=== PATIENT | male | born 1935 | race Caucasian/White ===

== ENCOUNTER 2016-11-06 11:09 | Inpatient (IN) | payer MEDICARE, OTHER ==
[2016-11-06] MEDS ORDERED: Sodium Chloride 0.9% 1,000 ML IV SCH ×3 (11:15→13:30)
[2016-11-06] MEDS ORDERED: Acetaminophen 325 MG Tab PO ONE (11:52)
--- NOTE | 2016-11-06 11:58 | EDM.PDOC ---
ED HPI GENERAL MEDICAL PROBLEM - General Chief Complaint: General Stated Complaint: [facility] Time Seen by Provider: 11/06/16 11:55 Source of Information: Reports: Patient, Family History Limitations: Reports: No Limitations - History of Present Illness INITIAL COMMENTS - FREE TEXT/NARRATIVE: pt has become progessively weaker in the past 2-3 days. He became incontinent of urine late yesterday and in the nite. He has not had a cough or has not been sob. Onset: Gradual, Other ( Over the past 3 days. ) Duration: Day(s):, Getting Worse, Other (pt is running a high temp. ) Location: Reports: Abdomen Associated Symptoms: Reports: Diaphoresis, Fever/Chills, Malaise - Related Data Allergies Allergy/AdvReac Type Severity Reaction Status Date / Time No Known Allergies Allergy Verified 11/06/16 11:23 Home Meds: Home Meds Allopurinol [Zyloprim] 300 mg PO DAILY 11/06/16 [History] Aspirin [Halfprin] 81 mg PO DAILY 11/06/16 [History] Diclofenac Sodium [Voltaren] 100 gm TP QID 11/06/16 [History] Furosemide 80 mg PO DAILY 11/06/16 [History] Losartan Potassium 50 mg PO DAILY 11/06/16 [History] Magnesium Oxide 400 mg PO DAILY 11/06/16 [History] Saccharomyces Boulardii [Florastor] 250 mg PO BID 11/06/16 [History] Sertraline [Zoloft] 100 mg PO DAILY 11/06/16 [History] Simvastatin [Zocor] 80 mg PO BEDTIME 11/06/16 [History] Vitamin E 400 units PO DAILY 11/06/16 [History] amLODIPine [Norvasc] 10 mg PO DAILY 11/06/16 [History] busPIRone [Buspar] 5 mg PO BEDTIME 11/06/16 [History] Past Medical History HEENT History: Reports: Cataract, Macular Degeneration Cardiovascular History: Reports: Heart Failure, High Cholesterol, Hypertension, [place] Genitourinary History: Reports: BPH, Urinary Incontinence Musculoskeletal History: Reports: Other (See Below) Other Musculoskeletal History: swollen lower legs Neurological History: Reports: Other (See Below) Other Neuro History: confusion which has increased - Past Surgical History Cardiovascular Surgical History: Reports: Vascular Surgery Male Surgical History: Reports: Prostatectomy Social & Family History - Tobacco Use Smoking Status *Q: Never Smoker - Alcohol Use Days Per Week of Alcohol Use: 7 Number of Drinks Per Day: 4 Total Drinks Per Week: 28 Date of Last Drink: 11/03/16 - Recreational Drug Use Recreational Drug Use: No ED ROS GENERAL - Review of Systems Review Of Systems: See Below Constitutional: Reports: Fever, Chills, Malaise HEENT: Reports: No Symptoms Respiratory: Reports: No Symptoms Cardiovascular: Reports: No Symptoms Endocrine: Reports: No Symptoms GI/Abdominal: Reports: No Symptoms : Reports: Incontinence, Other ( smelly urine. ) Musculoskeletal: Reports: No Symptoms Skin: Reports: No Symptoms Neurological: Reports: Other ( somewhat obtunded. ) Psychiatric: Reports: Depression ED EXAM, GENERAL - Physical Exam Exam: See Below Free Text/Narrative:: pt arrived with a twemp of 102 and being somewhat obtunded. He was so weak he could not get to the Br. r Exam Limited By: No Limitations General Appearance: Alert, Obtunded Ears: Normal TMs Nose: Normal Inspection Throat/Mouth: Normal Inspection Head: Atraumatic Respiratory/Chest: No Respiratory Distress Cardiovascular: Regular Rate, Rhythm, Tachycardia GI/Abdominal: Soft, Non-Tender (Male) Exam: Deferred, Other ( bladder scan showed a rewsidual of 50cc. ) Rectal (Males) Exam: Deferred Back Exam: Normal Inspection Extremities: Other ( rt leg is swollen. It is qute firm and this is different. ) Neurological: Alert, Oriented, Other ( sleepy. ) Psychiatric: Depressed Mood Course - Vital Signs Last Recorded V/S: Last Vital Signs Temp 38.8 C H 11/06/16 11:59 Pulse 107 H 11/06/16 11:22 Resp 20 11/06/16 11:22 BP 135/61 11/06/16 11:22 Pulse Ox 93 L 11/06/16 11:22 - Orders/Labs/Meds Orders: Active Orders 24 hr Category Date Time Status VL Duplex Lwr Ext Veins Ltd Rt [US] Stat Exams 11/06/16 11:54 Taken CULTURE BLOOD [BC] Urgent Lab 11/06/16 11:50 Received CULTURE BLOOD [BC] Urgent Lab 11/06/16 12:00 Received CULTURE URINE [RM] Stat Lab 11/06/16 12:08 Received Sodium Chloride 0.9% [Normal Saline] 1,000 ml Med 11/06/16 13:00 Active IV ASDIRECTED Sodium Chloride 0.9% [Normal Saline] 1,000 ml Med 11/06/16 13:15 Active IV ASDIRECTED cefTRIAXone [Rocephin] 1 gm Med 11/06/16 13:30 Active Sodium Chloride 0.9% [Normal Saline] 50 ml IV Q24H Blood Culture x2 Reflex Set [OM.PC] Urgent Oth 11/06/16 11:46 Ordered Medication Orders Sodium Chloride (Normal Saline) 1,000 mls @ 1,000 mls/hr IV ASDIRECTED TED Stop: 11/06/16 15:01 Ceftriaxone Sodium 1 gm/ (Sodium Chloride) 50 mls @ 100 mls/hr IV Q24H TED Sodium Chloride (Normal Saline) 1,000 mls @ 500 mls/hr IV ASDIRECTED TED Labs: Laboratory Tests 11/06/16 11/06/16 11/06/16 Range/Units 11:20 11:20 11:44 WBC 16.5 H (4.5-11.0) K/uL RBC 3.39 L (4.30-5.90) M/uL Hgb 11.2 L (12.0-15.0) g/dL Hct 34.0 L (40.0-54.0) % MCV 100 H (80-98) fL MCH 33 H (27-31) pg MCHC 33 (32-36) % Plt Count 127 L (150-400) K/uL Neut % (Auto) 90 H (36-66) % Lymph % (Auto) 3 L (24-44) % [place] % (Auto) 7 H (2-6) % Eos % (Auto) 0 L (2-4) % Baso % (Auto) 0 (0-1) % Sodium 130 L (140-148) mmol/L Potassium 4.1 (3.6-5.2) mmol/L Chloride 94 L (100-108) mmol/L Carbon Dioxide 28 (21-32) mmol/L Anion Gap 12.1 (5.0-14.0) mmol/L BUN 64 H (7-18) mg/dL Creatinine 2.1 H (0.8-1.3) mg/dL Est Cr Clr Drug Dosing 32.97 mL/min Estimated GFR (MDRD) 30 L (>60) Glucose 189 H (74-106) mg/dL Lactic Acid (0.4-2.0) mmol/L Calcium 9.4 (8.5-10.1) mg/dL Total Bilirubin 1.1 H (0.2-1.0) mg/dL AST 45 H (15-37) U/L ALT 32 (12-78) U/L Alkaline Phosphatase 244 H (46-116) U/L Total Protein 7.6 (6.4-8.2) g/dL Albumin 3.3 L (3.4-5.0) g/dL Globulin 4.3 H (2.3-3.5) g/dL Albumin/Globulin Ratio 0.8 L (1.2-2.2) Urine Color Yellow Urine Appearance Cloudy Urine pH 5.0 (4.5-8.0) Ur Specific [place] 1.010 (1.008-1.030) Urine Protein 100 H (NEGATIVE) mg/dL Urine Glucose (UA) Normal (NEGATIVE) mg/dL Urine Ketones Negative (NEGATIVE) mg/dL Urine Occult Blood Negative (NEGATIVE) Urine Nitrite Negative (NEGAITVE) Urine Bilirubin Negative (NEGATIVE) Urine Urobilinogen Normal (NORMAL) mg/dL Ur Leukocyte Esterase Small (NEGATIVE) Urine RBC Not seen (0-5) Urine WBC 5-10 H (0-5) Ur Epithelial Cells Few Amorphous Sediment Rare Urine Bacteria Many Urine Mucus Not seen 11/06/16 Range/Units 11:45 WBC (4.5-11.0) K/uL RBC (4.30-5.90) M/uL Hgb (12.0-15.0) g/dL Hct (40.0-54.0) % MCV (80-98) fL MCH (27-31) pg MCHC (32-36) % Plt Count (150-400) K/uL Neut % (Auto) (36-66) % Lymph % (Auto) (24-44) % [place] % (Auto) (2-6) % Eos % (Auto) (2-4) % Baso % (Auto) (0-1) % Sodium (140-148) mmol/L Potassium (3.6-5.2) mmol/L Chloride (100-108) mmol/L Carbon Dioxide (21-32) mmol/L Anion Gap (5.0-14.0) mmol/L BUN (7-18) mg/dL Creatinine (0.8-1.3) mg/dL Est Cr Clr Drug Dosing mL/min Estimated GFR (MDRD) (>60) Glucose (74-106) mg/dL Lactic Acid 2.5 H (0.4-2.0) mmol/L Calcium (8.5-10.1) mg/dL Total Bilirubin (0.2-1.0) mg/dL AST (15-37) U/L ALT (12-78) U/L Alkaline Phosphatase (46-116) U/L Total Protein (6.4-8.2) g/dL Albumin (3.4-5.0) g/dL Globulin (2.3-3.5) g/dL Albumin/Globulin Ratio (1.2-2.2) Urine Color Urine Appearance Urine pH (4.5-8.0) Ur Specific [place] (1.008-1.030) Urine Protein (NEGATIVE) mg/dL Urine Glucose (UA) (NEGATIVE) mg/dL Urine Ketones (NEGATIVE) mg/dL Urine Occult Blood (NEGATIVE) Urine Nitrite (NEGAITVE) Urine Bilirubin (NEGATIVE) Urine Urobilinogen (NORMAL) mg/dL Ur Leukocyte Esterase (NEGATIVE) Urine RBC (0-5) Urine WBC (0-5) Ur Epithelial Cells Amorphous Sediment Urine Bacteria Urine Mucus Meds: Medications Generic Name Dose Route Start Last Admin Trade Name Freq PRN Reason Stop Dose Admin Sodium Chloride 1,000 mls @ 1,000 mls/hr 11/06/16 13:00 Normal Saline IV 11/06/16 15:01 ASDIRECTED TED Ceftriaxone Sodium 1 gm/ 50 mls @ 100 mls/hr 11/06/16 13:30 Sodium Chloride IV Q24H TED Sodium Chloride 1,000 mls @ 500 mls/hr 11/06/16 13:15 Normal Saline IV ASDIRECTED TED Discontinued Medications Generic Name Dose Route Start Last Admin Trade Name Freq PRN Reason Stop Dose Admin Acetaminophen 650 mg 11/06/16 11:52 11/06/16 11:59 Tylenol PO 11/06/16 11:53 650 mg NOW ONE Administration Sodium Chloride 1,000 mls @ 500 mls/hr 11/06/16 11:15 11/06/16 11:32 Normal Saline IV 500 mls/hr ASDIRECTED TED Administration - Re-Assessments/Exams Free Text/Narrative Re-Assessment/Exam: 11/06/16 13:21 Us on the rt leg was neg for clot. His urine looks infected. He was given tylenol for his fever. His wbc is elevated. Departure - Departure Time of Disposition: 13:22 Disposition: Admitted As Inpatient 66 Condition: Fair Clinical Impression: Sepsis, UTI (urinary tract infection) - Discharge Information Forms: ED Department Discharge Care Plan Goals: admit to Dr zuñiga - My Orders Last 24 Hours: My Active Orders 11/06/16 11:46 Blood Culture x2 Reflex Set [OM.PC] Urgent 11/06/16 11:50 CULTURE BLOOD [BC] Urgent 11/06/16 11:54 VL Duplex Lwr Ext Veins Ltd Rt [US] Stat 11/06/16 12:00 CULTURE BLOOD [BC] Urgent 11/06/16 12:08 CULTURE URINE [RM] Stat 11/06/16 13:15 Sodium Chloride 0.9% [Normal Saline] 1,000 ml IV ASDIRECTED - Assessment/Plan Last 24 Hours: My Active Orders 11/06/16 11:46 Blood Culture x2 Reflex Set [OM.PC] Urgent 11/06/16 11:50 CULTURE BLOOD [BC] Urgent 11/06/16 11:54 VL Duplex Lwr Ext Veins Ltd Rt [US] Stat 11/06/16 12:00 CULTURE BLOOD [BC] Urgent 11/06/16 12:08 CULTURE URINE [RM] Stat 11/06/16 13:15 Sodium Chloride 0.9% [Normal Saline] 1,000 ml IV ASDIRECTED
--- NOTE | 2016-11-06 12:36 | CR ---
Chest 1V Frontal HISTORY: Shortness of breath and fever. COMPARISON: None FINDINGS: Median sternotomy. Moderate cardiomegaly. No acute congestive change. No dense infiltrate. Calcified granuloma right upper lobe. Impression: Cardiomegaly. No acute infiltrates.
[2016-11-06] MEDS: cefTRIAXone 1 GM in Sodium Chloride 0.9% 50 ML IV SCH ×2 (13:21→13:32)
[2016-11-06] MEDS: Sodium Chloride 0.9% 1,000 ML IV SCH ×3 (13:23→21:25)
--- NOTE | 2016-11-06 13:45 | US ---
VL Duplex Lwr Ext Veins Ltd Rt HISTORY: Pain, swelling. FINDINGS: The deep veins of the right lower extremity demonstrate normal augmentation and compressib ility. No evidence for deep venous thrombosis. IMPRESSION: Normal lower extremity venous Doppler study.
[2016-11-06] MEDS ORDERED: Polyethylene Glycol 3350 Powder 17 GM Packet PO PRN (15:30)
[2016-11-06] MEDS ORDERED: Magnesium Hydroxide 400 MG/5 ML Susp 30 ML Cup PO PRN (15:30)
[2016-11-06] MEDS ORDERED: Ondansetron 4 MG/2 ML SDV IV PRN (15:30)
[2016-11-06] MEDS ORDERED: Sodium Chloride 0.9% 10 ML Syringe FLUSH PRN (15:30)
[2016-11-06] MEDS ORDERED: Sodium Chloride 0.9% 500 ML IV ONE (15:30)
[2016-11-06] MEDS ORDERED: oxyCODONE 5 MG Tab PO PRN (15:30)
[2016-11-06] MEDS ORDERED: Sodium Chloride 0.9% 1,000 ML IV ONE (17:11)
[2016-11-06] MEDS: Diclofenac Sodium 1% Gel 100 GM Tube TOP SCH ×2 (17:25→21:06)
[2016-11-06] MEDS: Enoxaparin 40 MG/0.4 ML Syringe SUBCUT SCH (17:25)
[2016-11-06] MEDS: Dimethicone 20%/Zinc Oxide 25% 56 GM Spray Bottle TOP PRN (17:34)
--- NOTE | 2016-11-06 17:35 | PCM.HP ---
H&P History of Present Illness - General Date of Service: 11/06/16 Admit Problem/Dx: Admission Diagnosis/Problem Admission Diagnosis/Problem Cystitis Source of Information: Patient, Family, Old Records, Provider, RN Notes Reviewed History Limitations: Reports: No Limitations - History of Present Illness Initial Comments - Free Text/Narative: Mr. Castro is an 81-year-old gentleman who is admitted through the emergency department for further evaluation and management of urinary tract infection with sepsis. He and his live in the [facility] but her spending sometime this summer [place] their cabin. Over the past few days has become progressively more weak to the point that he was unable to get out of his chair. His morning had persistent weakness and also developed shaking chills. On evaluation in the emergency department there is evidence of urinary tract infection and associated sepsis with hypotension and tachycardia. - Related Data Allergies/Adverse Reactions: Allergies Allergy/AdvReac Type Severity Reaction Status Date / Time No Known Allergies Allergy Verified 11/06/16 11:23 Home Medications: Home Meds Allopurinol [Zyloprim] 300 mg PO DAILY 11/06/16 [History] Aspirin [Halfprin] 81 mg PO DAILY 11/06/16 [History] Diclofenac Sodium [Voltaren] 100 gm TP QID 11/06/16 [History] Furosemide 80 mg PO DAILY 11/06/16 [History] Losartan Potassium 50 mg PO DAILY 11/06/16 [History] Magnesium Oxide 400 mg PO DAILY 11/06/16 [History] Saccharomyces Boulardii [Florastor] 250 mg PO BID 11/06/16 [History] Sertraline [Zoloft] 100 mg PO DAILY 11/06/16 [History] Simvastatin [Zocor] 80 mg PO BEDTIME 11/06/16 [History] Vitamin E 400 units PO DAILY 11/06/16 [History] amLODIPine [Norvasc] 10 mg PO DAILY 11/06/16 [History] busPIRone [Buspar] 5 mg PO BEDTIME 11/06/16 [History] Past Medical History HEENT History: Reports: Cataract, Hard of Hearing, Macular Degeneration Cardiovascular History: Reports: Heart Failure, High Cholesterol, Hypertension, [place] Other Respiratory History: pt going to have sleep study has it scheduled Genitourinary History: Reports: BPH, Urinary Incontinence Musculoskeletal History: Reports: Other (See Below) Other Musculoskeletal History: swollen lower legs Neurological History: Reports: Other (See Below) Other Neuro History: confusion which has increased Oncologic (Cancer) History: Reports: Prostate Other Oncologic History: had radiation seeds 16 years ago - Infectious Disease History Infectious Disease History: Reports: Chicken Pox - Past Surgical History Cardiovascular Surgical History: Reports: Vascular Surgery Male Surgical History: Reports: Prostatectomy Social & Family History - Family History Family Medical History: Noncontributory - Tobacco Use Smoking Status *Q: Never Smoker Second Hand Smoke Exposure: No - Caffeine Use Caffeine Use: Reports: Coffee - Alcohol Use Days Per Week of Alcohol Use: 7 Number of Drinks Per Day: 4 Total Drinks Per Week: 28 Date of Last Drink: 11/04/16 - Recreational Drug Use Recreational Drug Use: No H&P Review of Systems - Review of Systems: Review Of Systems: See Below General: Reports: Fever, Chills, Weakness HEENT: Reports: No Symptoms Pulmonary: Reports: No Symptoms Cardiovascular: Reports: No Symptoms Gastrointestinal: Reports: No Symptoms Genitourinary: Reports: Frequency, Incontinence Musculoskeletal: Reports: No Symptoms Skin: Reports: No Symptoms Psychiatric: Reports: No Symptoms Neurological: Reports: No Symptoms Hematologic/Lymphatic: Reports: No Symptoms Immunologic: Reports: No Symptoms Exam - Exam Exam: See Below - Vital Signs Vital Signs: Last Vital Signs Temp 99.0 F 11/06/16 16:00 Pulse 69 11/06/16 17:06 Resp 18 11/06/16 17:06 BP 79/54 L 11/06/16 17:06 Pulse Ox 96 11/06/16 17:06 Weight: 330 lb 8 oz - Exam Quality Assessment: DVT Prophylaxis General: Alert, Cooperative, Mild Distress HEENT: Conjunctiva Clear, EOMI, Hearing Intact, Mucosa Moist & [place], Normal Nasal Septum, Posterior Pharynx Clear, Pupils Equal, Pupils Reactive Neck: Supple, Trachea Midline, +2 Carotid Pulse wo Bruit Lungs: Clear to Auscultation, Normal Respiratory Effort Cardiovascular: Regular Rhythm, Normal S1, Normal S2, Tachycardia, Systolic Murmur. No: Irregular Rhythm, Bradycardia, Diastolic Murmur Abdomen: Normal Bowel Sounds, Soft Back Exam: Normal Inspection, Full Range of Motion, NT Extremities: Edema Skin: Warm, Dry, Intact Neurological: Cranial Nerves Intact, Strength Equal Bilateral, Normal Speech, Normal Tone, Sensation Intact. No: Focal Deficit Neuro Extensive - Mental Status: Alert, Oriented x3, Normal Mood/Affect, Normal Cognition, Memory Intact - Patient Data Result Diagrams: 11/06/16 11:20 11/06/16 11:20 *Q Meaningful Use (ADM) - VTE *Q VTE Criteria *Q: - VTE Risk Assess *Q Each Risk Factor Represents 1 Point: Swollen Legs, Current Total Score 1 Point Risk Factors: 1 Each Risk Factor Represents 2 Points: Morbid Obesity (BMI Greater than 40) Total Score 2 Point Risk Factors: 2 Each Risk Factor Represents 3 Points: None Total Score 3 Point Risk Factors: 0 Each Risk Factor Represents 5 Points: None Total Score 5 Point Risk Factors: 0 Venous Thromboembolism Risk Factor Score *Q: 3 - Stroke *Q Stroke Criteria *Q: - AMI *Q AMI Criteria *Q: Problem List Initiated/Reviewed/Updated: Yes Orders Last 24hrs: Active Orders 24 hr Category Date Time Status Patient Status [ADT] Routine ADT 11/06/16 15:30 Active Bedrest Bedside Commode [RC] ASDIRECTED Care 11/06/16 15:30 Active Intake and Output [RC] QSHIFT Care 11/06/16 15:30 Active Notify Provider Vital Signs [RC] ASDIRECTED Care 11/06/16 15:30 Active Oxygen Therapy [RC] PRN Care 11/06/16 15:30 Active Peripheral IV Care [RC] . DIRECTED Care 11/06/16 15:30 Active RT Aerosol Therapy [RC] ASDIRECTED Care 11/06/16 15:30 Active Up With Assistance [RC] ASDIRECTED Care 11/06/16 15:30 Active VTE/DVT Education [RC] Per Unit Routine Care 11/06/16 15:30 Active Vital Signs [RC] Q1H Care 11/06/16 15:30 Active PT Evaluation and Treatment [CONS] Routine Cons 11/06/16 15:30 Active 2 Gram Sodium Diet [DIET] Diet 11/06/16 Lunch Active BASIC METABOLIC PANEL,BMP [CHEM] AM Lab 11/07/16 05:11 Ordered CBC WITH AUTO DIFF [HEME] AM Lab 11/07/16 05:11 Ordered Acetaminophen [Tylenol] Med 11/06/16 15:30 Active 650 mg PO Q4H PRN Albuterol [Proventil Neb Soln] Med 11/06/16 15:30 Active 2.5 mg NEB Q4H PRN Dimethicone/Zinc Oxide [Rash Relief-Zinc Oxide [place]] Med 11/06/16 16:55 Active 1 gm TOP ASDIRECTED PRN Docusate Sodium [Colace] Med 11/06/16 15:30 Active 100 mg PO BID PRN Enoxaparin [Lovenox] Med 11/06/16 17:00 Active 40 mg SUBCUT Q24H Lactobacillus Rhamnosus GG [Culturelle] Med 11/06/16 21:00 Active 1 cap PO BID Magnesium Hydroxide [Milk of Magnesia] Med 11/06/16 15:30 Active 30 ml PO Q12H PRN Ondansetron [Zofran] Med 11/06/16 15:30 Active 4 mg IV Q4H PRN Polyethylene Glycol 3350 [MiraLAX] Med 11/06/16 15:30 Active 17 gm PO DAILY PRN Sertraline [Zoloft] Med 11/07/16 09:00 Active 100 mg PO DAILY Simvastatin [Zocor] Med 11/06/16 21:00 Active 80 mg PO BEDTIME Sodium Chloride 0.9% [Normal Saline] 1,000 ml Med 11/06/16 17:11 Active IV .BOLUS Sodium Chloride 0.9% [Normal Saline] 1,000 ml Med 11/06/16 17:30 Active IV ASDIRECTED Sodium Chloride 0.9% [Normal Saline] 500 ml Med 11/06/16 15:30 Active IV .BOLUS Sodium Chloride 0.9% [Saline Flush] Med 11/06/16 15:30 Active 10 ml FLUSH ASDIRECTED PRN cefTRIAXone [Rocephin] 1 gm Med 11/07/16 13:00 Active Sodium Chloride 0.9% [Normal Saline] 50 ml IV Q24H oxyCODONE Med 11/06/16 15:30 Active 10 mg PO Q4H PRN Peripheral IV Insertion Adult [OM.PC] Routine Oth 11/06/16 15:30 Ordered Resuscitation Status Routine Resus Stat 11/06/16 15:02 Ordered Medication Orders Acetaminophen (Tylenol) 650 mg PO Q4H PRN PRN Reason: Pain (Mild 1-3)/fever Albuterol (Proventil Neb Soln) 2.5 mg NEB Q4H PRN PRN Reason: Shortness Of Breath/wheezing Allopurinol (Zyloprim) 300 mg PO DAILY TED Amlodipine Besylate (Norvasc) 10 mg PO DAILY TED Aspirin (Halfprin) 81 mg PO DAILY TED Buspirone HCl (Buspar) 5 mg PO BEDTIME TED Diclofenac Sodium (Voltaren 1% Gel) 0 gm TOP QID TED Dimethicone/Zinc Oxide (Rash Relief-Zinc Oxide [place]) 1 gm TOP ASDIRECTED PRN PRN Reason: Rash Docusate Sodium (Colace) 100 mg PO BID PRN PRN Reason: Constipation Enoxaparin Sodium (Lovenox) 40 mg SUBCUT Q24H TED Furosemide (Lasix) 80 mg PO DAILY [facility] Sodium Chloride (Normal Saline) 500 mls @ 250 mls/hr IV .BOLUS ONE Stop: 11/06/16 17:29 Last Admin: 11/06/16 15:45 Dose: 250 mls/hr Sodium Chloride (Normal Saline) 1,000 mls @ 125 mls/hr IV ASDIRECTED TED Ceftriaxone Sodium 1 gm/ (Sodium Chloride) 50 mls @ 100 mls/hr IV Q24H TED Sodium Chloride (Normal Saline) 1,000 mls @ 999 mls/hr IV .BOLUS ONE Stop: 11/06/16 18:11 Lactobacillus Rhamnosus (Culturelle) 1 cap PO BID [facility] Losartan Potassium (Cozaar) 50 mg PO DAILY [facility] Magnesium Hydroxide (Milk Of Magnesia) 30 ml PO Q12H PRN PRN Reason: Constipation Magnesium Oxide (Magnesium Oxide) 400 mg PO DAILY [facility] Ondansetron HCl (Zofran) 4 mg IV Q4H PRN PRN Reason: Nausea/Vomiting Oxycodone HCl (Oxycodone) 10 mg PO Q4H PRN PRN Reason: Pain (moderate 4-6) Polyethylene Glycol (Miralax) 17 gm PO DAILY PRN PRN Reason: Constipation Sertraline HCl (Zoloft) 100 mg PO DAILY [facility] Simvastatin (Zocor) 80 mg PO BEDTIME [facility] Sodium Chloride (Saline Flush) 10 ml FLUSH ASDIRECTED PRN PRN Reason: Keep Vein Open Assessment/Plan Comment:: ASSESSMENT AND PLAN URINARY TRACT INFECTION WITH SEPSIS-he developed progressive weakness associated with chills this morning. On evaluation in the emergency department has evidence of urinary tract infection and sepsis. He has been hypotensive and tachycardic mild elevation in uric acid level. 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-currently denies symptoms of chest pain or pressure -Continue outpatient medical management HYPERTENSION -Hold antihypertensive therapy pending resolution of sepsis HISTORY OF DAILY ALCOHOL USE -Monitor closely for any evidence of alcohol withdrawal CHRONIC KIDNEY DISEASE STAGE III WITH ACUTE KIDNEY INJURY-creatinine is elevated from baseline, likely secondary to current infection and sepsis -Aggressive IV fluid replacement as above -Closely monitor urine output and renal function during hospital stay MAINTENANCE ISSUES -DVT prophylaxis; Lovenox 40 mg subcutaneous daily -GI prophylaxis; not indicated -[place] catheter; not indicated -Nutrition; 2 g sodium diet -Nicotine dependence; not required CODE STATUS-FULL CODE ADMISSION STATUS-patient will be admitted to inpatient status, expect at least a 2 night hospital stay for evaluation and management of problems as outlined above. At the time of this admission I do not reasonably expected evaluation and management of this problem will require more than a 96 hour hospital stay. DISPOSITION-anticipate discharge to home after the hospital stay. PRIMARY CARE PROVIDER-
[2016-11-06] MEDS ORDERED: Norepinephrine 4 MG in Dextrose 5% in Water 246 ML IV SCH ×2 (20:00)
[2016-11-06] MEDS ORDERED: Dextrose 5% in Water 250 ML ONE (20:05)
[2016-11-06] MEDS: Simvastatin 20 MG Tab PO SCH (20:21)
[2016-11-06] MEDS: Lactobacillus Rhamnosus GG (Probiotic) Cap PO SCH (20:22)
[2016-11-06] MEDS: busPIRone 5 MG Tab PO SCH (20:22)
[2016-11-06] MEDS ORDERED: Non-Formulary Medication 1 Each (Saccharomyces Boulardii [Florastor] 250 MG) PO SCH (21:00)
[2016-11-06] MEDS ORDERED: Non-Formulary Medication 1 Each (Simvastatin [Zocor] 80 MG) PO SCH (21:00)
[2016-11-07] MEDS: Sodium Chloride 0.9% 1,000 ML IV SCH (04:51)
[2016-11-07] MEDS: Acetaminophen 325 MG Tab PO PRN ×3 (05:02→21:27)
[2016-11-07] MEDS: Diclofenac Sodium 1% Gel 100 GM Tube TOP SCH ×4 (06:12→21:26)
[2016-11-07] MEDS ORDERED: Enoxaparin 40 MG/0.4 ML Syringe SUBCUT SCH (09:00)
[2016-11-07] MEDS ORDERED: Non-Formulary Medication 1 Each (Sertraline [Zoloft] 100 MG) PO SCH (09:00)
[2016-11-07] MEDS: Furosemide 80 MG Tab PO SCH (09:38)
[2016-11-07] MEDS: Sertraline 50 MG Tab PO SCH (09:38)
[2016-11-07] MEDS: Magnesium Oxide 400 MG Tab PO SCH (09:38)
[2016-11-07] MEDS: amLODIPine 10 MG Tab PO SCH (09:38)
[2016-11-07] MEDS: Allopurinol 300 MG Tab PO SCH (09:39)
[2016-11-07] MEDS: Losartan 50 MG Tab PO SCH (09:39)
[2016-11-07] MEDS: Lactobacillus Rhamnosus GG (Probiotic) Cap PO SCH ×2 (09:39→20:20)
[2016-11-07] MEDS: Aspirin 81 MG Tab.EC PO SCH (09:42)
[2016-11-07] MEDS ORDERED: Sodium Chloride 0.9% 1,000 ML IV SCH (09:45)
--- NOTE | 2016-11-07 09:46 | PCM.PN ---
- General Info Date of Service: 11/07/16 Functional Status: Reports: tolerating diet, urinating - Review of Systems General: Reports: Weakness. Denies: Fever, Chills Pulmonary: Reports: no symptoms Cardiovascular: Reports: Dyspnea on Exertion, Edema. Denies: Chest Pain, Palpitations, Orthopnea, PND Gastrointestinal: Reports: No symptoms Genitourinary: Reports: no symptoms Psychiatric: Denies: confusion Systems Review Comment:: Mr. Castro has improved significantly over the past 24 hours since admission. He did experience significant sepsis with hypotension that persisted after aggressive fluid replacement. Because of this he was started on norepinephrine which did result in improved blood pressures through the night. This morning is feeling better and is more clear, confusion appears to have resolved. White blood cell count has normalized and he has been afebrile. - Patient Data Vitals - most recent: Last Vital Signs Temp 100.2 F 11/07/16 07:35 Pulse 63 11/07/16 08:00 Resp 20 11/07/16 08:00 BP 124/48 L 11/07/16 09:38 Pulse Ox 94 L 11/07/16 08:00 Weight - most recent: 330 lb 8 oz I&O - last 24 hours: Intake & Output 11/06/16 11/07/16 11/07/16 22:59 06:59 14:59 Intake Total 4350 960 300 Balance 4350 960 300 Lab Results last 24 hrs: Laboratory Results - last 24 hr 11/06/16 11/07/16 11/07/16 Range/Units 20:00 05:00 05:11 WBC 9.4 (4.5-11.0) K/uL RBC 3.03 L (4.30-5.90) M/uL Hgb 10.2 L (12.0-15.0) g/dL Hct 30.7 L (40.0-54.0) % MCV 101 H (80-98) fL MCH 34 H (27-31) pg MCHC 33 (32-36) % Plt Count 105 L (150-400) K/uL Neut % (Auto) 83 H (36-66) % Lymph % (Auto) 6 L (24-44) % [place] % (Auto) 10 H (2-6) % Eos % (Auto) 0 L (2-4) % Baso % (Auto) 0 (0-1) % Sodium (140-148) mmol/L Potassium (3.6-5.2) mmol/L Chloride (100-108) mmol/L Carbon Dioxide (21-32) mmol/L Anion Gap (5.0-14.0) mmol/L BUN (7-18) mg/dL Creatinine (0.8-1.3) mg/dL Est Cr Clr Drug Dosing mL/min Estimated GFR (MDRD) (>60) Glucose (74-106) mg/dL Lactic Acid 0.8 1.0 (0.7-2.1) mmol/L Calcium (8.5-10.1) mg/dL 11/07/16 Range/Units 05:11 WBC (4.5-11.0) K/uL RBC (4.30-5.90) M/uL Hgb (12.0-15.0) g/dL Hct (40.0-54.0) % MCV (80-98) fL MCH (27-31) pg MCHC (32-36) % Plt Count (150-400) K/uL Neut % (Auto) (36-66) % Lymph % (Auto) (24-44) % [place] % (Auto) (2-6) % Eos % (Auto) (2-4) % Baso % (Auto) (0-1) % Sodium 135 L (140-148) mmol/L Potassium 3.7 (3.6-5.2) mmol/L Chloride 100 (100-108) mmol/L Carbon Dioxide 25 (21-32) mmol/L Anion Gap 13.7 (5.0-14.0) mmol/L BUN 64 H (7-18) mg/dL Creatinine 1.8 H (0.8-1.3) mg/dL Est Cr Clr Drug Dosing 38.47 mL/min Estimated GFR (MDRD) 36 L (>60) Glucose 104 (74-106) mg/dL Lactic Acid (0.7-2.1) mmol/L Calcium 8.4 L (8.5-10.1) mg/dL Med Orders - Current: Current Medications Acetaminophen (Tylenol) 650 mg PO Q4H PRN PRN Reason: Pain (Mild 1-3)/fever Last Admin: 11/07/16 05:02 Dose: 325 mg Albuterol (Proventil Neb Soln) 2.5 mg NEB Q4H PRN PRN Reason: Shortness Of Breath/wheezing Allopurinol (Zyloprim) 300 mg PO DAILY [facility] Last Admin: 11/07/16 09:39 Dose: 300 mg Amlodipine Besylate (Norvasc) 10 mg PO DAILY [facility] Last Admin: 11/07/16 09:38 Dose: 10 mg Aspirin (Halfprin) 81 mg PO DAILY [facility] Last Admin: 11/07/16 09:42 Dose: 81 mg Buspirone HCl (Buspar) 5 mg PO BEDTIME [facility] Last Admin: 11/06/16 20:22 Dose: 5 mg Diclofenac Sodium (Voltaren 1% Gel) 0 gm TOP QID [facility] Last Admin: 11/07/16 06:12 Dose: 1 percent Dimethicone/Zinc Oxide (Rash Relief-Zinc Oxide [place]) 1 gm TOP ASDIRECTED PRN PRN Reason: Rash Last Admin: 11/06/16 17:34 Dose: 1 gm Docusate Sodium (Colace) 100 mg PO BID PRN PRN Reason: Constipation Enoxaparin Sodium (Lovenox) 40 mg SUBCUT Q24H [facility] Last Admin: 11/06/16 17:25 Dose: 40 mg Furosemide (Lasix) 80 mg PO DAILY [facility] Last Admin: 11/07/16 09:38 Dose: 80 mg Ceftriaxone Sodium 1 gm/ (Sodium Chloride) 50 mls @ 100 mls/hr IV Q24H [facility] Norepinephrine Bitartrate 4 mg (/ Dextrose/Water) 250 mls @ 7.5 mls/hr IV TITRATE TED; 2 MCG/MIN PRN Reason: Protocol Last Admin: 11/06/16 20:18 Dose: 2 mcg/min, 7.5 mls/hr Sodium Chloride (Normal Saline) 1,000 mls @ 50 mls/hr IV ASDIRECTED [facility] Lactobacillus Rhamnosus (Culturelle) 1 cap PO BID [facility] Last Admin: 11/07/16 09:39 Dose: 1 cap Losartan Potassium (Cozaar) 50 mg PO DAILY [facility] Last Admin: 11/07/16 09:39 Dose: 50 mg Magnesium Hydroxide (Milk Of Magnesia) 30 ml PO Q12H PRN PRN Reason: Constipation Magnesium Oxide (Magnesium Oxide) 400 mg PO DAILY [facility] Last Admin: 11/07/16 09:38 Dose: 400 mg Ondansetron HCl (Zofran) 4 mg IV Q4H PRN PRN Reason: Nausea/Vomiting Oxycodone HCl (Oxycodone) 10 mg PO Q4H PRN PRN Reason: Pain (moderate 4-6) Polyethylene Glycol (Miralax) 17 gm PO DAILY PRN PRN Reason: Constipation Sertraline HCl (Zoloft) 100 mg PO DAILY [facility] Last Admin: 11/07/16 09:38 Dose: 100 mg Simvastatin (Zocor) 80 mg PO BEDTIME [facility] Last Admin: 11/06/16 20:21 Dose: 80 mg Sodium Chloride (Saline Flush) 10 ml FLUSH ASDIRECTED PRN PRN Reason: Keep Vein Open Discontinued Medications Acetaminophen (Tylenol) 650 mg PO NOW ONE Stop: 11/06/16 11:53 Last Admin: 11/06/16 11:59 Dose: 650 mg Sodium Chloride (Normal Saline) 1,000 mls @ 500 mls/hr IV ASDIRECTED [facility] Last Admin: 11/06/16 11:32 Dose: 500 mls/hr Sodium Chloride (Normal Saline) 1,000 mls @ 1,000 mls/hr IV ASDIRECTED [facility] Stop: 11/06/16 15:01 Last Admin: 11/06/16 14:31 Dose: 1,000 mls/hr Ceftriaxone Sodium 1 gm/ (Sodium Chloride) 50 mls @ 100 mls/hr IV Q24H [facility] Last Admin: 11/06/16 13:32 Dose: Not Given Sodium Chloride (Normal Saline) 1,000 mls @ 500 mls/hr IV ASDIRECTED [facility] Sodium Chloride (Normal Saline) 1,000 mls @ 999 mls/hr IV ASDIRECTED [facility] Sodium Chloride (Normal Saline) 500 mls @ 250 mls/hr IV .BOLUS ONE Stop: 11/06/16 17:29 Last Admin: 11/06/16 15:45 Dose: 250 mls/hr Sodium Chloride (Normal Saline) 1,000 mls @ 125 mls/hr IV ASDIRECTED [facility] Last Admin: 11/07/16 04:51 Dose: 125 mls/hr Sodium Chloride (Normal Saline) 1,000 mls @ 999 mls/hr IV .BOLUS ONE Stop: 11/06/16 18:11 Last Admin: 11/06/16 17:26 Dose: 999 mls/hr Dextrose/Water (Dextrose 5% In Water) Confirm Administered Dose 250 mls @ as directed .ROUTE .STK-MED ONE Stop: 11/06/16 20:06 Last Admin: 11/06/16 20:14 Dose: 7.5 ml - Exam Quality Assessment: DVT prophylaxis General: alert, oriented, cooperative, no acute distress Lungs: Clear to auscultation, Normal respiratory effort Cardiovascular: Regular Rate, Regular Rhythm, Murmurs. No: Irregular Rhythm, Bradycardia, Tachycardia Abdomen: bowel sounds present, soft, no tenderness, no distension Extremities: edema Skin: warm, dry, intact - Problem List Review Problem List Initiated/Reviewed/Updated: Yes - My Orders Last 24 Hours: My Active Orders 11/06/16 15:02 Resuscitation Status Routine 11/06/16 15:30 Patient Status [ADT] Routine Bedrest Bedside Commode [RC] ASDIRECTED Intake and Output [RC] QSHIFT Notify Provider Vital Signs [RC] ASDIRECTED Oxygen Therapy [RC] PRN Peripheral IV Care [RC] . DIRECTED RT Aerosol Therapy [RC] ASDIRECTED Up With Assistance [RC] ASDIRECTED VTE/DVT Education [RC] Per Unit Routine Vital Signs [RC] Q1H PT Evaluation and Treatment [CONS] Routine Acetaminophen [Tylenol] 650 mg PO Q4H PRN Albuterol [Proventil Neb Soln] 2.5 mg NEB Q4H PRN Docusate Sodium [Colace] 100 mg PO BID PRN Magnesium Hydroxide [Milk of Magnesia] 30 ml PO Q12H PRN Ondansetron [Zofran] 4 mg IV Q4H PRN Polyethylene Glycol 3350 [MiraLAX] 17 gm PO DAILY PRN Sodium Chloride 0.9% [Saline Flush] 10 ml FLUSH ASDIRECTED PRN oxyCODONE 10 mg PO Q4H PRN Peripheral IV Insertion Adult [OM.PC] Routine 11/06/16 16:55 Dimethicone/Zinc Oxide [Rash Relief-Zinc Oxide [place]] 1 gm TOP ASDIRECTED PRN 11/06/16 17:00 Enoxaparin [Lovenox] 40 mg SUBCUT Q24H 11/06/16 20:00 Norepinephrine [Levophed] 4 mg Dextrose 5% in Water 246 ml IV TITRATE 11/06/16 21:00 Lactobacillus Rhamnosus GG [Culturelle] 1 cap PO BID Simvastatin [Zocor] 80 mg PO BEDTIME 11/06/16 Lunch 2 Gram Sodium Diet [DIET] 11/07/16 09:00 Sertraline [Zoloft] 100 mg PO DAILY 11/07/16 09:45 Sodium Chloride 0.9% @ 50 MLS/HR(1000ml) Sodium Chloride 0.9% [Normal Saline] 1 ,000 ml IV ASDIRECTED 11/07/16 13:00 cefTRIAXone [Rocephin] 1 gm Sodium Chloride 0.9% [Normal Saline] 50 ml IV Q24H 11/08/16 05:00 BASIC METABOLIC PANEL,BMP [CHEM] Timed MAGNESIUM [CHEM] Timed - Plan Plan:: ASSESSMENT AND PLAN URINARY TRACT INFECTION WITH SEPSIS-hemodynamically unstable after admission requiring aggressive fluid replacement as well as addition of norepinephrine. More stable this morning, confusion has resolved. 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 -Closely monitor urine output and renal function during hospital stay MAINTENANCE ISSUES -DVT prophylaxis; Lovenox 40 mg subcutaneous daily -GI prophylaxis; not indicated -Colmenares catheter; not indicated -Nutrition; 2 g sodium diet -Nicotine dependence; not required CODE STATUS-FULL CODE ADMISSION STATUS-patient will be admitted to inpatient status, expect at least a 2 night hospital stay for evaluation and management of problems as outlined above. At the time of this admission I do not reasonably expected evaluation and management of this problem will require more than a 96 hour hospital stay. DISPOSITION-anticipate discharge to home after the hospital stay. PRIMARY CARE PROVIDER-
[2016-11-07] MEDS ORDERED: cefTRIAXone 1 GM in Sodium Chloride 0.9% 50 ML IV SCH (13:00)
[2016-11-07] MEDS: Enoxaparin 40 MG/0.4 ML Syringe SUBCUT SCH (17:28)
[2016-11-07] MEDS: busPIRone 5 MG Tab PO SCH (20:19)
[2016-11-07] MEDS: Simvastatin 20 MG Tab PO SCH (20:20)
[2016-11-08] MEDS: Diclofenac Sodium 1% Gel 100 GM Tube TOP SCH ×4 (05:55→21:00)
[2016-11-08] MEDS ORDERED: Potassium Chloride 20 MEQ Tab.ER PO ONE (09:00)
[2016-11-08] MEDS: Aspirin 81 MG Tab.EC PO SCH (09:35)
[2016-11-08] MEDS: Lactobacillus Rhamnosus GG (Probiotic) Cap PO SCH ×2 (09:36→20:55)
[2016-11-08] MEDS: Furosemide 80 MG Tab PO SCH (09:36)
[2016-11-08] MEDS: Losartan 50 MG Tab PO SCH (09:36)
[2016-11-08] MEDS: Magnesium Oxide 400 MG Tab PO SCH (09:37)
[2016-11-08] MEDS: Sertraline 50 MG Tab PO SCH (09:38)
[2016-11-08] MEDS: amLODIPine 10 MG Tab PO SCH (09:38)
[2016-11-08] MEDS: Allopurinol 300 MG Tab PO SCH (09:38)
[2016-11-08] MEDS: Acetaminophen 325 MG Tab PO PRN ×3 (10:30→21:19)
--- NOTE | 2016-11-08 10:45 | PCM.PN ---
- General Info Date of Service: 11/08/16 Functional Status: Reports: tolerating diet, urinating - Review of Systems General: Reports: Fever, Weakness. Denies: Chills Pulmonary: Reports: no symptoms Cardiovascular: Reports: No Symptoms Gastrointestinal: Reports: No symptoms Psychiatric: Denies: confusion Systems Review Comment:: Mr. Castro has improved significantly over the past 24 hours, he did have mild temperature elevation, but vital signs have been more stable. He has experienced no further episodes of confusion. Remains physically very weak and unable to stand or ambulate. - Patient Data Vitals - most recent: Last Vital Signs Temp 100.1 F 11/08/16 06:00 Pulse 84 11/08/16 06:00 Resp 21 H 11/08/16 06:00 BP 159/68 H 11/08/16 09:38 Pulse Ox 94 L 11/08/16 06:00 Weight - most recent: 338 lb I&O - last 24 hours: Intake & Output 11/07/16 11/08/16 11/08/16 22:59 06:59 14:59 Intake Total 1536 627 Output Total 300 200 Balance 1236 627 -200 Lab Results last 24 hrs: Laboratory Results - last 24 hr 11/08/16 Range/Units 05:00 Sodium 135 L (140-148) mmol/L Potassium 3.5 L (3.6-5.2) mmol/L Chloride 101 (100-108) mmol/L Carbon Dioxide 27 (21-32) mmol/L Anion Gap 10.5 (5.0-14.0) mmol/L BUN 58 H (7-18) mg/dL Creatinine 1.6 H (0.8-1.3) mg/dL Est Cr Clr Drug Dosing 43.51 mL/min Estimated GFR (MDRD) 42 L (>60) Glucose 95 (74-106) mg/dL Calcium 8.5 (8.5-10.1) mg/dL Magnesium 2.2 (1.8-2.4) mg/dL Med Orders - Current: Current Medications Acetaminophen (Tylenol) 650 mg PO Q4H PRN PRN Reason: Pain (Mild 1-3)/fever Last Admin: 11/07/16 21:27 Dose: 650 mg Albuterol (Proventil Neb Soln) 2.5 mg NEB Q4H PRN PRN Reason: Shortness Of Breath/wheezing Allopurinol (Zyloprim) 300 mg PO DAILY [facility] Last Admin: 11/08/16 09:38 Dose: 300 mg Amlodipine Besylate (Norvasc) 10 mg PO DAILY [facility] Last Admin: 11/08/16 09:38 Dose: 10 mg Aspirin (Halfprin) 81 mg PO DAILY [facility] Last Admin: 11/08/16 09:35 Dose: 81 mg Buspirone HCl (Buspar) 5 mg PO BEDTIME [facility] Last Admin: 11/07/16 20:19 Dose: 5 mg Diclofenac Sodium (Voltaren 1% Gel) 0 gm TOP QID [facility] Last Admin: 11/08/16 05:55 Dose: 1 percent Dimethicone/Zinc Oxide (Rash Relief-Zinc Oxide [place]) 1 gm TOP ASDIRECTED PRN PRN Reason: Rash Last Admin: 11/06/16 17:34 Dose: 1 gm Docusate Sodium (Colace) 100 mg PO BID PRN PRN Reason: Constipation Enoxaparin Sodium (Lovenox) 40 mg SUBCUT Q24H [facility] Last Admin: 11/07/16 17:28 Dose: 40 mg Furosemide (Lasix) 80 mg PO DAILY [facility] Last Admin: 11/08/16 09:36 Dose: 80 mg Ceftriaxone Sodium 1 gm/ (Sodium Chloride) 50 mls @ 100 mls/hr IV Q24H [facility] Last Admin: 11/07/16 12:51 Dose: 100 mls/hr Norepinephrine Bitartrate 4 mg (/ Dextrose/Water) 250 mls @ 7.5 mls/hr IV TITRATE TED; 2 MCG/MIN PRN Reason: Protocol Last Titration: 11/07/16 09:40 Dose: 0 mcg/min, 0 mls/hr Sodium Chloride (Normal Saline) 1,000 mls @ 50 mls/hr IV ASDIRECTED [facility] Last Admin: 11/07/16 18:06 Dose: 50 mls/hr Lactobacillus Rhamnosus (Culturelle) 1 cap PO BID [facility] Last Admin: 11/08/16 09:36 Dose: 1 cap Losartan Potassium (Cozaar) 50 mg PO DAILY [facility] Last Admin: 11/08/16 09:36 Dose: 50 mg Magnesium Hydroxide (Milk Of Magnesia) 30 ml PO Q12H PRN PRN Reason: Constipation Magnesium Oxide (Magnesium Oxide) 400 mg PO DAILY [facility] Last Admin: 11/08/16 09:37 Dose: 400 mg Ondansetron HCl (Zofran) 4 mg IV Q4H PRN PRN Reason: Nausea/Vomiting Oxycodone HCl (Oxycodone) 10 mg PO Q4H PRN PRN Reason: Pain (moderate 4-6) Polyethylene Glycol (Miralax) 17 gm PO DAILY PRN PRN Reason: Constipation Sertraline HCl (Zoloft) 100 mg PO DAILY [facility] Last Admin: 11/08/16 09:38 Dose: 100 mg Simvastatin (Zocor) 80 mg PO BEDTIME [facility] Last Admin: 11/07/16 20:20 Dose: 80 mg Sodium Chloride (Saline Flush) 10 ml FLUSH ASDIRECTED PRN PRN Reason: Keep Vein Open Discontinued Medications Acetaminophen (Tylenol) 650 mg PO NOW ONE Stop: 11/06/16 11:53 Last Admin: 11/06/16 11:59 Dose: 650 mg Sodium Chloride (Normal Saline) 1,000 mls @ 500 mls/hr IV ASDIRECTED [facility] Last Admin: 11/06/16 11:32 Dose: 500 mls/hr Sodium Chloride (Normal Saline) 1,000 mls @ 1,000 mls/hr IV ASDIRECTED [facility] Stop: 11/06/16 15:01 Last Admin: 11/06/16 14:31 Dose: 1,000 mls/hr Ceftriaxone Sodium 1 gm/ (Sodium Chloride) 50 mls @ 100 mls/hr IV Q24H [facility] Last Admin: 11/06/16 13:32 Dose: Not Given Sodium Chloride (Normal Saline) 1,000 mls @ 500 mls/hr IV ASDIRECTED [facility] Sodium Chloride (Normal Saline) 1,000 mls @ 999 mls/hr IV ASDIRECTED [facility] Sodium Chloride (Normal Saline) 500 mls @ 250 mls/hr IV .BOLUS ONE Stop: 11/06/16 17:29 Last Admin: 11/06/16 15:45 Dose: 250 mls/hr Sodium Chloride (Normal Saline) 1,000 mls @ 125 mls/hr IV ASDIRECTED [facility] Last Admin: 11/07/16 04:51 Dose: 125 mls/hr Sodium Chloride (Normal Saline) 1,000 mls @ 999 mls/hr IV .BOLUS ONE Stop: 11/06/16 18:11 Last Admin: 11/06/16 17:26 Dose: 999 mls/hr Dextrose/Water (Dextrose 5% In Water) Confirm Administered Dose 250 mls @ as directed .ROUTE .STK-MED ONE Stop: 11/06/16 20:06 Last Admin: 11/06/16 20:14 Dose: 7.5 ml Potassium Chloride (Klor-Con M20) 40 meq PO ONETIME ONE Stop: 11/08/16 09:01 Last Admin: 11/08/16 09:37 Dose: 40 meq - Exam Quality Assessment: DVT prophylaxis General: alert, oriented, cooperative, no acute distress Lungs: Clear to auscultation, Normal respiratory effort Cardiovascular: Regular Rate, Regular Rhythm, No Murmurs Abdomen: bowel sounds present, soft, no tenderness, no distension Extremities: edema Skin: other (Decubitus ulcer, present on admission) - Problem List Review Problem List Initiated/Reviewed/Updated: Yes - My Orders Last 24 Hours: My Active Orders 11/07/16 09:45 Sodium Chloride 0.9% [Normal Saline] 1,000 ml IV ASDIRECTED 11/07/16 13:00 cefTRIAXone [Rocephin] 1 gm Sodium Chloride 0.9% [Normal Saline] 50 ml IV Q24H 11/07/16 16:18 Pressure Reduction Mattress [OM.PC] Routine 11/08/16 10:30 Patient Status Manage Transfer [TRANSFER] Routine - Plan Plan:: ASSESSMENT AND PLAN URINARY TRACT INFECTION WITH SEPSIS-he has done well over the past 24 hours with only mild temperature elevation, until this morning when he's had more significant elevation. Urine culture is growing out enterococcus, blood cultures growing both gram-positive and gram-negative organisms. Final ID and sensitivities are pending. He is now off of the norepinephrine and will saline lock IV. -Saline lock IV -Discontinue IV Rocephin -Unasyn 1.5 g IV every 6 hours, should provide good coverage for the enterococcus based on sensitivities as well as gram negatives -Vancomycin, dosing per pharmacy. 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 -Closely monitor urine output and renal function during hospital stay MAINTENANCE ISSUES -DVT prophylaxis; Lovenox 40 mg subcutaneous daily -GI prophylaxis; not indicated -Colmenares catheter; not indicated -Nutrition; 2 g sodium diet -Nicotine dependence; not required CODE STATUS-FULL CODE ADMISSION STATUS-patient will be admitted to inpatient status, expect at least a 2 night hospital stay for evaluation and management of problems as outlined above. At the time of this admission I do not reasonably expected evaluation and management of this problem will require more than a 96 hour hospital stay. DISPOSITION-anticipate discharge to home after the hospital stay. PRIMARY CARE PROVIDER-
[2016-11-08] MEDS: Ampicillin/Sulbactam Na 1.5 GM in Sodium Chloride 0.9% 50 ML IV SCH ×3 (10:54→22:49)
[2016-11-08] MEDS ORDERED: Vancomycin 1 GM SDV IV SCH (11:00)
[2016-11-08] MEDS: Vancomycin 2 GM in Sodium Chloride 0.9% 500 ML IV SCH ×2 (12:08→23:25)
[2016-11-08] MEDS: Enoxaparin 40 MG/0.4 ML Syringe SUBCUT SCH (16:35)
[2016-11-08] MEDS: busPIRone 5 MG Tab PO SCH (20:55)
[2016-11-08] MEDS: Simvastatin 20 MG Tab PO SCH (20:55)
[2016-11-08] MEDS: Docusate Sodium 100 MG Cap PO PRN (20:55)
[2016-11-08] MEDS: Dimethicone 20%/Zinc Oxide 25% 56 GM Spray Bottle TOP PRN (22:55)
[2016-11-09] MEDS: Acetaminophen 325 MG Tab PO PRN ×3 (01:32→21:01)
[2016-11-09] MEDS: Albuterol 0.083% 2.5 MG/3 ML Neb Soln NEB PRN ×2 (01:40→08:43)
[2016-11-09] MEDS: Ampicillin/Sulbactam Na 1.5 GM in Sodium Chloride 0.9% 50 ML IV SCH ×2 (05:26→10:43)
[2016-11-09] MEDS: Diclofenac Sodium 1% Gel 100 GM Tube TOP SCH ×4 (05:31→21:03)
[2016-11-09] MEDS: Losartan 50 MG Tab PO SCH (07:59)
[2016-11-09] MEDS: Furosemide 80 MG Tab PO SCH (07:59)
[2016-11-09] MEDS: Sertraline 50 MG Tab PO SCH (08:00)
[2016-11-09] MEDS: Lactobacillus Rhamnosus GG (Probiotic) Cap PO SCH ×2 (08:00→21:00)
[2016-11-09] MEDS: amLODIPine 10 MG Tab PO SCH (08:00)
[2016-11-09] MEDS: Aspirin 81 MG Tab.EC PO SCH (08:00)
[2016-11-09] MEDS: Magnesium Oxide 400 MG Tab PO SCH (08:00)
[2016-11-09] MEDS: Allopurinol 300 MG Tab PO SCH (08:00)
--- NOTE | 2016-11-09 09:30 | PCM.PN ---
- General Info Date of Service: 11/09/16 Functional Status: Reports: tolerating diet, urinating - Review of Systems General: Reports: Fever, Weakness, Chills Pulmonary: Reports: no symptoms Cardiovascular: Reports: No Symptoms Gastrointestinal: Reports: No symptoms Psychiatric: Denies: confusion Systems Review Comment:: This patient is improved since yesterday morning, at that time did have recurrent significant temperature elevation. Antibiotics have been changed and now final ID and sensitivities available from blood cultures. Urine culture did grow enterococcus, blood cultures are growing enterococcus and pansensitive Escherichia coli. Continues to have some temperature elevation, fever her curve does seem to be slowly decreasing. Appetite remains good and he is otherwise been hemodynamically stable. - Patient Data Vitals - most recent: Last Vital Signs Temp 99.8 F 11/09/16 07:00 Pulse 91 11/09/16 08:39 Resp 20 11/09/16 08:39 BP 116/49 L 11/09/16 08:39 Pulse Ox 94 L 11/09/16 08:39 Weight - most recent: 336 lb 6.4 oz I&O - last 24 hours: Intake & Output 11/08/16 11/09/16 11/09/16 22:59 06:59 14:59 Intake Total 2029 1325 520 Output Total 250 Balance 2029 1325 270 Lab Results last 24 hrs: Laboratory Results - last 24 hr 11/09/16 Range/Units 05:00 Sodium 136 L (140-148) mmol/L Potassium 3.7 (3.6-5.2) mmol/L Chloride 103 (100-108) mmol/L Carbon Dioxide 26 (21-32) mmol/L Anion Gap 10.7 (5.0-14.0) mmol/L BUN 45 H (7-18) mg/dL Creatinine 1.4 H (0.8-1.3) mg/dL Est Cr Clr Drug Dosing 49.72 mL/min Estimated GFR (MDRD) 49 L (>60) Glucose 101 (74-106) mg/dL Calcium 8.5 (8.5-10.1) mg/dL Med Orders - Current: Current Medications Acetaminophen (Tylenol) 650 mg PO Q4H PRN PRN Reason: Pain (Mild 1-3)/fever Last Admin: 11/09/16 01:32 Dose: 650 mg Albuterol (Proventil Neb Soln) 2.5 mg NEB Q4H PRN PRN Reason: Shortness Of Breath/wheezing Last Admin: 11/09/16 08:43 Dose: 2.5 mg Allopurinol (Zyloprim) 300 mg PO DAILY [facility] Last Admin: 11/09/16 08:00 Dose: 300 mg Amlodipine Besylate (Norvasc) 10 mg PO DAILY [facility] Last Admin: 11/09/16 08:00 Dose: 10 mg Aspirin (Halfprin) 81 mg PO DAILY [facility] Last Admin: 11/09/16 08:00 Dose: 81 mg Buspirone HCl (Buspar) 5 mg PO BEDTIME [facility] Last Admin: 11/08/16 20:55 Dose: 5 mg Diclofenac Sodium (Voltaren 1% Gel) 0 gm TOP QID [facility] Last Admin: 11/09/16 05:31 Dose: Not Given Dimethicone/Zinc Oxide (Rash Relief-Zinc Oxide [place]) 1 gm TOP ASDIRECTED PRN PRN Reason: Rash Last Admin: 11/08/16 22:55 Dose: 1 gm Docusate Sodium (Colace) 100 mg PO BID PRN PRN Reason: Constipation Last Admin: 11/08/16 20:55 Dose: 100 mg Enoxaparin Sodium (Lovenox) 40 mg SUBCUT Q24H [facility] Last Admin: 11/08/16 16:35 Dose: 40 mg Furosemide (Lasix) 80 mg PO DAILY [facility] Last Admin: 11/09/16 07:59 Dose: 80 mg Ampicillin Sodium/Sulbactam (Sodium 1.5 gm/ Sodium Chloride) 50 mls @ 100 mls/ hr IV Q6H [facility] Last Admin: 11/09/16 05:26 Dose: 100 mls/hr Lactobacillus Rhamnosus (Culturelle) 1 cap PO BID [facility] Last Admin: 11/09/16 08:00 Dose: 1 cap Losartan Potassium (Cozaar) 50 mg PO DAILY [facility] Last Admin: 11/09/16 07:59 Dose: 50 mg Magnesium Hydroxide (Milk Of Magnesia) 30 ml PO Q12H PRN PRN Reason: Constipation Magnesium Oxide (Magnesium Oxide) 400 mg PO DAILY [facility] Last Admin: 11/09/16 08:00 Dose: 400 mg Ondansetron HCl (Zofran) 4 mg IV Q4H PRN PRN Reason: Nausea/Vomiting Oxycodone HCl (Oxycodone) 10 mg PO Q4H PRN PRN Reason: Pain (moderate 4-6) Polyethylene Glycol (Miralax) 17 gm PO DAILY PRN PRN Reason: Constipation Sertraline HCl (Zoloft) 100 mg PO DAILY [facility] Last Admin: 11/09/16 08:00 Dose: 100 mg Simvastatin (Zocor) 80 mg PO BEDTIME [facility] Last Admin: 11/08/16 20:55 Dose: 80 mg Sodium Chloride (Saline Flush) 10 ml FLUSH ASDIRECTED PRN PRN Reason: Keep Vein Open Last Admin: 11/08/16 22:55 Dose: 10 ml Discontinued Medications Acetaminophen (Tylenol) 650 mg PO NOW ONE Stop: 11/06/16 11:53 Last Admin: 11/06/16 11:59 Dose: 650 mg Sodium Chloride (Normal Saline) 1,000 mls @ 500 mls/hr IV ASDIRECTED [facility] Last Admin: 11/06/16 11:32 Dose: 500 mls/hr Sodium Chloride (Normal Saline) 1,000 mls @ 1,000 mls/hr IV ASDIRECTED [facility] Stop: 11/06/16 15:01 Last Admin: 11/06/16 14:31 Dose: 1,000 mls/hr Ceftriaxone Sodium 1 gm/ (Sodium Chloride) 50 mls @ 100 mls/hr IV Q24H [facility] Last Admin: 11/06/16 13:32 Dose: Not Given Sodium Chloride (Normal Saline) 1,000 mls @ 500 mls/hr IV ASDIRECTED [facility] Sodium Chloride (Normal Saline) 1,000 mls @ 999 mls/hr IV ASDIRECTED [facility] Sodium Chloride (Normal Saline) 500 mls @ 250 mls/hr IV .BOLUS ONE Stop: 11/06/16 17:29 Last Admin: 11/06/16 15:45 Dose: 250 mls/hr Sodium Chloride (Normal Saline) 1,000 mls @ 125 mls/hr IV ASDIRECTED [facility] Last Admin: 11/07/16 04:51 Dose: 125 mls/hr Ceftriaxone Sodium 1 gm/ (Sodium Chloride) 50 mls @ 100 mls/hr IV Q24H [facility] Last Admin: 11/07/16 12:51 Dose: 100 mls/hr Sodium Chloride (Normal Saline) 1,000 mls @ 999 mls/hr IV .BOLUS ONE Stop: 11/06/16 18:11 Last Admin: 11/06/16 17:26 Dose: 999 mls/hr Norepinephrine Bitartrate 4 mg (/ Dextrose/Water) 250 mls @ 7.5 mls/hr IV TITRATE TED; 2 MCG/MIN PRN Reason: Protocol Last Titration: 11/07/16 09:40 Dose: 0 mcg/min, 0 mls/hr Dextrose/Water (Dextrose 5% In Water) Confirm Administered Dose 250 mls @ as directed .ROUTE .STK-MED ONE Stop: 11/06/16 20:06 Last Admin: 11/06/16 20:14 Dose: 7.5 ml Sodium Chloride (Normal Saline) 1,000 mls @ 50 mls/hr IV ASDIRECTED TED Last Admin: 11/07/16 18:06 Dose: 50 mls/hr Vancomycin HCl 2 gm/ Sodium (Chloride) 500 mls @ 250 mls/hr IV Q12H TED Last Admin: 11/08/16 23:25 Dose: 250 mls/hr Potassium Chloride (Klor-Con M20) 40 meq PO ONETIME ONE Stop: 11/08/16 09:01 Last Admin: 11/08/16 09:37 Dose: 40 meq Vancomycin HCl (Vancomycin) 1 gm IV .PHARMACY TO DOSE TED Stop: 11/08/16 16:00 - Exam Quality Assessment: DVT prophylaxis General: alert, oriented, cooperative, no acute distress Lungs: Normal respiratory effort, Decreased breath sounds, Wheezing. No: Crackles, Rales, Rhonchi Cardiovascular: Regular Rate, Regular Rhythm, Murmurs. No: Irregular Rhythm, Bradycardia, Tachycardia Abdomen: bowel sounds present, soft, no tenderness, no distension Extremities: edema Skin: warm, dry, intact - Problem List Review Problem List Initiated/Reviewed/Updated: Yes - My Orders Last 24 Hours: My Active Orders 11/08/16 10:44 Vital Signs [RC] Q2H Convert IV to Saline Lock [OM.PC] Routine 11/08/16 11:00 Ampicillin/Sulbactam Na [Unasyn] 1.5 gm Sodium Chloride 0.9% [Normal Saline] 50 ml IV Q6H 11/09/16 09:20 Patient Status Manage Transfer [TRANSFER] Routine 11/10/16 05:00 BASIC METABOLIC PANEL,BMP [CHEM] Timed CBC WITH AUTO DIFF [HEME] Timed - Plan Plan:: ASSESSMENT AND PLAN URINARY TRACT INFECTION WITH SEPSIS-after recurrent significant temperature elevation yesterday morning, temperatures have been elevated but decreased from previous level. Final ID and sensitivities are now available from blood cultures. Enterococcus is also growing from the blood in addition to Escherichia coli which is found to be pansensitive. He's feeling better this morning has had no recurrent chills, remains very weak. 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 -Closely monitor urine output and renal function during hospital stay MAINTENANCE ISSUES -DVT prophylaxis; Lovenox 40 mg subcutaneous daily -GI prophylaxis; not indicated -Colmenares catheter; not indicated -Nutrition; 2 g sodium diet -Nicotine dependence; not required CODE STATUS-FULL CODE ADMISSION STATUS-patient will be admitted to inpatient status, expect at least a 2 night hospital stay for evaluation and management of problems as outlined above. At the time of this admission I do not reasonably expected evaluation and management of this problem will require more than a 96 hour hospital stay. DISPOSITION-anticipate discharge to home after the hospital stay. PRIMARY CARE PROVIDER-
[2016-11-09] MEDS: Ampicillin 2 GM in Sodium Chloride 0.9% 100 ML IV SCH ×2 (16:10→21:06)
[2016-11-09] MEDS: Enoxaparin 40 MG/0.4 ML Syringe SUBCUT SCH (16:11)
[2016-11-09] MEDS: Docusate Sodium 100 MG Cap PO PRN (16:21)
[2016-11-09] MEDS: Simvastatin 20 MG Tab PO SCH (21:00)
[2016-11-09] MEDS: busPIRone 5 MG Tab PO SCH (21:00)
[2016-11-10] MEDS: Ampicillin 2 GM in Sodium Chloride 0.9% 100 ML IV SCH ×4 (03:08→21:11)
[2016-11-10] MEDS: Diclofenac Sodium 1% Gel 100 GM Tube TOP SCH ×4 (05:15→21:12)
[2016-11-10] MEDS: Aspirin 81 MG Tab.EC PO SCH (08:49)
[2016-11-10] MEDS: Furosemide 80 MG Tab PO SCH (08:49)
[2016-11-10] MEDS: amLODIPine 10 MG Tab PO SCH (08:49)
[2016-11-10] MEDS: Sertraline 50 MG Tab PO SCH (08:49)
[2016-11-10] MEDS: Lactobacillus Rhamnosus GG (Probiotic) Cap PO SCH ×2 (08:49→21:06)
[2016-11-10] MEDS: Magnesium Oxide 400 MG Tab PO SCH (08:49)
[2016-11-10] MEDS: Allopurinol 300 MG Tab PO SCH (08:49)
[2016-11-10] MEDS: Losartan 50 MG Tab PO SCH (08:49)
--- NOTE | 2016-11-10 11:13 | PCM.PN ---
- General Info Date of Service: 11/10/16 Functional Status: Reports: tolerating diet - Review of Systems General: Reports: Fever, Weakness, Fatigue, Chills Pulmonary: Reports: no symptoms Cardiovascular: Reports: No Symptoms Gastrointestinal: Reports: No symptoms Systems Review Comment:: Mr. Castro appears to be doing better today with more energy and improvement in his oral intake. Did have significant temperature elevation yesterday with associated chills and weakness. Vital signs have remained stable with no evidence of recurrent sepsis, continues to have temperature elevations but overall decreased from what he experienced last 2 days. - Patient Data Vitals - most recent: Last Vital Signs Temp 100.4 F 11/10/16 07:35 Pulse 89 11/10/16 07:35 Resp 28 H 11/10/16 07:35 BP 159/70 H 11/10/16 08:49 Pulse Ox 95 11/10/16 07:35 Weight - most recent: 336 lb 6.4 oz I&O - last 24 hours: Intake & Output 11/09/16 11/10/16 11/10/16 22:59 06:59 14:59 Intake Total 340 400 100 Output Total 850 1300 1 Balance -510 -900 99 Lab Results last 24 hrs: Laboratory Results - last 24 hr 11/10/16 11/10/16 Range/Units 05:35 05:35 WBC 10.2 (4.5-11.0) K/uL RBC 3.07 L (4.30-5.90) M/uL Hgb 9.9 L (12.0-15.0) g/dL Hct 30.5 L (40.0-54.0) % MCV 99 H (80-98) fL MCH 32 H (27-31) pg MCHC 33 (32-36) % Plt Count 120 L (150-400) K/uL Neut % (Auto) 66 (36-66) % Lymph % (Auto) 16 L (24-44) % [place] % (Auto) 16 H (2-6) % Eos % (Auto) 1 L (2-4) % Baso % (Auto) 1 (0-1) % Sodium 137 L (140-148) mmol/L Potassium 3.8 (3.6-5.2) mmol/L Chloride 103 (100-108) mmol/L Carbon Dioxide 26 (21-32) mmol/L Anion Gap 11.8 (5.0-14.0) mmol/L BUN 36 H (7-18) mg/dL Creatinine 1.4 H (0.8-1.3) mg/dL Est Cr Clr Drug Dosing 49.72 mL/min Estimated GFR (MDRD) 49 L (>60) Glucose 94 (74-106) mg/dL Calcium 8.7 (8.5-10.1) mg/dL Med Orders - Current: Current Medications Acetaminophen (Tylenol) 650 mg PO Q4H PRN PRN Reason: Pain (Mild 1-3)/fever Last Admin: 11/09/16 21:01 Dose: 650 mg Albuterol (Proventil Neb Soln) 2.5 mg NEB Q4H PRN PRN Reason: Shortness Of Breath/wheezing Last Admin: 11/09/16 08:43 Dose: 2.5 mg Allopurinol (Zyloprim) 300 mg PO DAILY [facility] Last Admin: 11/10/16 08:49 Dose: 300 mg Amlodipine Besylate (Norvasc) 10 mg PO DAILY [facility] Last Admin: 11/10/16 08:49 Dose: 10 mg Aspirin (Halfprin) 81 mg PO DAILY [facility] Last Admin: 11/10/16 08:49 Dose: 81 mg Buspirone HCl (Buspar) 5 mg PO BEDTIME [facility] Last Admin: 11/09/16 21:00 Dose: 5 mg Diclofenac Sodium (Voltaren 1% Gel) 0 gm TOP QID [facility] Last Admin: 11/10/16 09:01 Dose: 1 percent Dimethicone/Zinc Oxide (Rash Relief-Zinc Oxide [place]) 1 gm TOP ASDIRECTED PRN PRN Reason: Rash Last Admin: 11/08/16 22:55 Dose: 1 gm Docusate Sodium (Colace) 100 mg PO BID PRN PRN Reason: Constipation Last Admin: 11/09/16 16:21 Dose: 100 mg Enoxaparin Sodium (Lovenox) 40 mg SUBCUT Q24H [facility] Last Admin: 11/09/16 16:11 Dose: 40 mg Furosemide (Lasix) 80 mg PO DAILY [facility] Last Admin: 11/10/16 08:49 Dose: 80 mg Ampicillin Sodium 2 gm/ Sodium (Chloride) 100 mls @ 200 mls/hr IV Q6H [facility] Last Admin: 11/10/16 10:09 Dose: 200 mls/hr Lactobacillus Rhamnosus (Culturelle) 1 cap PO BID [facility] Last Admin: 11/10/16 08:49 Dose: 1 cap Losartan Potassium (Cozaar) 50 mg PO DAILY [facility] Last Admin: 11/10/16 08:49 Dose: 50 mg Magnesium Hydroxide (Milk Of Magnesia) 30 ml PO Q12H PRN PRN Reason: Constipation Magnesium Oxide (Magnesium Oxide) 400 mg PO DAILY [facility] Last Admin: 11/10/16 08:49 Dose: 400 mg Ondansetron HCl (Zofran) 4 mg IV Q4H PRN PRN Reason: Nausea/Vomiting Oxycodone HCl (Oxycodone) 10 mg PO Q4H PRN PRN Reason: Pain (moderate 4-6) Polyethylene Glycol (Miralax) 17 gm PO DAILY PRN PRN Reason: Constipation Sertraline HCl (Zoloft) 100 mg PO DAILY [facility] Last Admin: 11/10/16 08:49 Dose: 100 mg Simvastatin (Zocor) 80 mg PO BEDTIME [facility] Last Admin: 11/09/16 21:00 Dose: 80 mg Sodium Chloride (Saline Flush) 10 ml FLUSH ASDIRECTED PRN PRN Reason: Keep Vein Open Last Admin: 11/08/16 22:55 Dose: 10 ml Discontinued Medications Acetaminophen (Tylenol) 650 mg PO NOW ONE Stop: 11/06/16 11:53 Last Admin: 11/06/16 11:59 Dose: 650 mg Sodium Chloride (Normal Saline) 1,000 mls @ 500 mls/hr IV ASDIRECTED [facility] Last Admin: 11/06/16 11:32 Dose: 500 mls/hr Sodium Chloride (Normal Saline) 1,000 mls @ 1,000 mls/hr IV ASDIRECTED [facility] Stop: 11/06/16 15:01 Last Admin: 11/06/16 14:31 Dose: 1,000 mls/hr Ceftriaxone Sodium 1 gm/ (Sodium Chloride) 50 mls @ 100 mls/hr IV Q24H [facility] Last Admin: 11/06/16 13:32 Dose: Not Given Sodium Chloride (Normal Saline) 1,000 mls @ 500 mls/hr IV ASDIRECTED [facility] Sodium Chloride (Normal Saline) 1,000 mls @ 999 mls/hr IV ASDIRECTED [facility] Sodium Chloride (Normal Saline) 500 mls @ 250 mls/hr IV .BOLUS ONE Stop: 11/06/16 17:29 Last Admin: 11/06/16 15:45 Dose: 250 mls/hr Sodium Chloride (Normal Saline) 1,000 mls @ 125 mls/hr IV ASDIRECTED [facility] Last Admin: 11/07/16 04:51 Dose: 125 mls/hr Ceftriaxone Sodium 1 gm/ (Sodium Chloride) 50 mls @ 100 mls/hr IV Q24H [facility] Last Admin: 11/07/16 12:51 Dose: 100 mls/hr Sodium Chloride (Normal Saline) 1,000 mls @ 999 mls/hr IV .BOLUS ONE Stop: 11/06/16 18:11 Last Admin: 11/06/16 17:26 Dose: 999 mls/hr Norepinephrine Bitartrate 4 mg (/ Dextrose/Water) 250 mls @ 7.5 mls/hr IV TITRATE TED; 2 MCG/MIN PRN Reason: Protocol Last Titration: 11/07/16 09:40 Dose: 0 mcg/min, 0 mls/hr Dextrose/Water (Dextrose 5% In Water) Confirm Administered Dose 250 mls @ as directed .ROUTE .STK-MED ONE Stop: 11/06/16 20:06 Last Admin: 11/06/16 20:14 Dose: 7.5 ml Sodium Chloride (Normal Saline) 1,000 mls @ 50 mls/hr IV ASDIRECTED [facility] Last Admin: 11/07/16 18:06 Dose: 50 mls/hr Ampicillin Sodium/Sulbactam (Sodium 1.5 gm/ Sodium Chloride) 50 mls @ 100 mls/ hr IV Q6H [facility] Last Admin: 11/09/16 10:43 Dose: 100 mls/hr Vancomycin HCl 2 gm/ Sodium (Chloride) 500 mls @ 250 mls/hr IV Q12H [facility] Last Admin: 11/08/16 23:25 Dose: 250 mls/hr Potassium Chloride (Klor-Con M20) 40 meq PO ONETIME ONE Stop: 11/08/16 09:01 Last Admin: 11/08/16 09:37 Dose: 40 meq Vancomycin HCl (Vancomycin) 1 gm IV .PHARMACY TO DOSE TED Stop: 11/08/16 16:00 - Exam General: alert, oriented, cooperative, no acute distress Lungs: Clear to auscultation, Normal respiratory effort Cardiovascular: Regular Rate, Regular Rhythm, No Murmurs Abdomen: bowel sounds present, soft, no tenderness, no distension Extremities: edema Skin: warm, dry, intact - Problem List Review Problem List Initiated/Reviewed/Updated: Yes - My Orders Last 24 Hours: My Active Orders 11/09/16 10:44 Vital Signs [RC] Q4H 11/09/16 13:58 Urinary Catheter Assessment [RC] Q12H 11/09/16 14:00 Colmenares Catheter Insertion [Insert Urinary Catheter] [OM.PC] Q24H 11/09/16 16:00 Ampicillin 2 gm Sodium Chloride 0.9% [Normal Saline] 100 ml IV Q6H - Plan Plan:: ASSESSMENT AND PLAN URINARY TRACT INFECTION WITH SEPSIS-recurrent significant temperature elevation yesterday, fever curve has improved since then and vital signs have remained stable. Urine culture has grown out enterococcus, blood cultures have grown out enterococcus and Escherichia coli. He appears to turn the corner with his infection appetite has improved and he is noted modest improvement in his energy level. -Saline lock IV -Discontinue vancomycin and Unasyn -Ampicillin 2 g IV every 6 hours, continue one additional day, plan for transition to oral antibiotic therapy tomorrow DECUBITUS ULCER-present on admission, this is a chronic ulcer present for the past year to. 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 -Closely monitor urine output and renal function during hospital stay MAINTENANCE ISSUES -DVT prophylaxis; Lovenox 40 mg subcutaneous daily -GI prophylaxis; not indicated -Colmenares catheter; not indicated -Nutrition; 2 g sodium diet -Nicotine dependence; not required CODE STATUS-FULL CODE ADMISSION STATUS-patient will be admitted to inpatient status, expect at least a 2 night hospital stay for evaluation and management of problems as outlined above. At the time of this admission I do not reasonably expected evaluation and management of this problem will require more than a 96 hour hospital stay. DISPOSITION-anticipate discharge to home after the hospital stay. PRIMARY CARE PROVIDER-
[2016-11-10] MEDS: Enoxaparin 40 MG/0.4 ML Syringe SUBCUT SCH (16:55)
[2016-11-10] MEDS: busPIRone 5 MG Tab PO SCH (21:07)
[2016-11-10] MEDS: Simvastatin 20 MG Tab PO SCH (21:07)
[2016-11-11] MEDS: Ampicillin 2 GM in Sodium Chloride 0.9% 100 ML IV SCH ×2 (03:07→10:08)
[2016-11-11] MEDS: Diclofenac Sodium 1% Gel 100 GM Tube TOP SCH ×4 (05:26→21:45)
[2016-11-11] MEDS: Sertraline 50 MG Tab PO SCH (08:05)
[2016-11-11] MEDS: Aspirin 81 MG Tab.EC PO SCH (08:05)
[2016-11-11] MEDS: Losartan 50 MG Tab PO SCH (08:05)
[2016-11-11] MEDS: Furosemide 80 MG Tab PO SCH (08:05)
[2016-11-11] MEDS: Lactobacillus Rhamnosus GG (Probiotic) Cap PO SCH ×2 (08:05→20:12)
[2016-11-11] MEDS: Magnesium Oxide 400 MG Tab PO SCH (08:05)
[2016-11-11] MEDS: amLODIPine 10 MG Tab PO SCH (08:06)
[2016-11-11] MEDS: Allopurinol 300 MG Tab PO SCH (08:06)
--- NOTE | 2016-11-11 14:16 | PCM.PN ---
- General Info Date of Service: 11/11/16 Functional Status: Reports: pain controlled, tolerating diet, ambulating - Review of Systems General: Reports: Weakness Pulmonary: Denies: shortness of breath Gastrointestinal: Denies: Abdominal pain Systems Review Comment:: No acute events overnight. No fevers. Tolerating current antibiotics. Strength seems to be improving and he was able to walk to the hallway and back today. Appetite has been acceptable. No complaints of shortness of breath or abdominal pain. - Patient Data Vitals - most recent: Last Vital Signs Temp 36.4 C 11/11/16 10:34 Pulse 81 11/11/16 10:34 Resp 18 11/11/16 10:34 BP 165/77 H 11/11/16 10:34 Pulse Ox 94 L 11/11/16 10:34 Weight - most recent: 152.588 kg I&O - last 24 hours: Intake & Output 11/10/16 11/11/16 11/11/16 22:59 06:59 14:59 Intake Total 560 400 700 Output Total 1075 1400 1000 Balance -515 -1000 -300 Med Orders - Current: Current Medications Acetaminophen (Tylenol) 650 mg PO Q4H PRN PRN Reason: Pain (Mild 1-3)/fever Last Admin: 11/09/16 21:01 Dose: 650 mg Albuterol (Proventil Neb Soln) 2.5 mg NEB Q4H PRN PRN Reason: Shortness Of Breath/wheezing Last Admin: 11/09/16 08:43 Dose: 2.5 mg Allopurinol (Zyloprim) 300 mg PO DAILY [facility] Last Admin: 11/11/16 08:06 Dose: 300 mg Amlodipine Besylate (Norvasc) 10 mg PO DAILY [facility] Last Admin: 11/11/16 08:06 Dose: 10 mg Aspirin (Halfprin) 81 mg PO DAILY [facility] Last Admin: 11/11/16 08:05 Dose: 81 mg Buspirone HCl (Buspar) 5 mg PO BEDTIME [facility] Last Admin: 11/10/16 21:07 Dose: 5 mg Diclofenac Sodium (Voltaren 1% Gel) 0 gm TOP QID [facility] Last Admin: 11/11/16 09:38 Dose: Not Given Dimethicone/Zinc Oxide (Rash Relief-Zinc Oxide [place]) 1 gm TOP ASDIRECTED PRN PRN Reason: Rash Last Admin: 11/08/16 22:55 Dose: 1 gm Docusate Sodium (Colace) 100 mg PO BID PRN PRN Reason: Constipation Last Admin: 11/09/16 16:21 Dose: 100 mg Enoxaparin Sodium (Lovenox) 40 mg SUBCUT Q24H [facility] Last Admin: 11/10/16 16:55 Dose: 40 mg Furosemide (Lasix) 80 mg PO DAILY [facility] Last Admin: 11/11/16 08:05 Dose: 80 mg Lactobacillus Rhamnosus (Culturelle) 1 cap PO BID [facility] Last Admin: 11/11/16 08:05 Dose: 1 cap Losartan Potassium (Cozaar) 50 mg PO DAILY [facility] Last Admin: 11/11/16 08:05 Dose: 50 mg Magnesium Hydroxide (Milk Of Magnesia) 30 ml PO Q12H PRN PRN Reason: Constipation Magnesium Oxide (Magnesium Oxide) 400 mg PO DAILY [facility] Last Admin: 11/11/16 08:05 Dose: 400 mg Ondansetron HCl (Zofran) 4 mg IV Q4H PRN PRN Reason: Nausea/Vomiting Oxycodone HCl (Oxycodone) 10 mg PO Q4H PRN PRN Reason: Pain (moderate 4-6) Polyethylene Glycol (Miralax) 17 gm PO DAILY PRN PRN Reason: Constipation Sertraline HCl (Zoloft) 100 mg PO DAILY [facility] Last Admin: 11/11/16 08:05 Dose: 100 mg Simvastatin (Zocor) 80 mg PO BEDTIME [facility] Last Admin: 11/10/16 21:07 Dose: 80 mg Sodium Chloride (Saline Flush) 10 ml FLUSH ASDIRECTED PRN PRN Reason: Keep Vein Open Last Admin: 11/08/16 22:55 Dose: 10 ml Discontinued Medications Acetaminophen (Tylenol) 650 mg PO NOW ONE Stop: 11/06/16 11:53 Last Admin: 11/06/16 11:59 Dose: 650 mg Sodium Chloride (Normal Saline) 1,000 mls @ 500 mls/hr IV ASDIRECTED [facility] Last Admin: 11/06/16 11:32 Dose: 500 mls/hr Sodium Chloride (Normal Saline) 1,000 mls @ 1,000 mls/hr IV ASDIRECTED [facility] Stop: 11/06/16 15:01 Last Admin: 11/06/16 14:31 Dose: 1,000 mls/hr Ceftriaxone Sodium 1 gm/ (Sodium Chloride) 50 mls @ 100 mls/hr IV Q24H [facility] Last Admin: 11/06/16 13:32 Dose: Not Given Sodium Chloride (Normal Saline) 1,000 mls @ 500 mls/hr IV ASDIRECTED TED Sodium Chloride (Normal Saline) 1,000 mls @ 999 mls/hr IV ASDIRECTED TED Sodium Chloride (Normal Saline) 500 mls @ 250 mls/hr IV .BOLUS ONE Stop: 11/06/16 17:29 Last Admin: 11/06/16 15:45 Dose: 250 mls/hr Sodium Chloride (Normal Saline) 1,000 mls @ 125 mls/hr IV ASDIRECTED TED Last Admin: 11/07/16 04:51 Dose: 125 mls/hr Ceftriaxone Sodium 1 gm/ (Sodium Chloride) 50 mls @ 100 mls/hr IV Q24H TED Last Admin: 11/07/16 12:51 Dose: 100 mls/hr Sodium Chloride (Normal Saline) 1,000 mls @ 999 mls/hr IV .BOLUS ONE Stop: 11/06/16 18:11 Last Admin: 11/06/16 17:26 Dose: 999 mls/hr Norepinephrine Bitartrate 4 mg (/ Dextrose/Water) 250 mls @ 7.5 mls/hr IV TITRATE TED; 2 MCG/MIN PRN Reason: Protocol Last Titration: 11/07/16 09:40 Dose: 0 mcg/min, 0 mls/hr Dextrose/Water (Dextrose 5% In Water) Confirm Administered Dose 250 mls @ as directed .ROUTE .STK-MED ONE Stop: 11/06/16 20:06 Last Admin: 11/06/16 20:14 Dose: 7.5 ml Sodium Chloride (Normal Saline) 1,000 mls @ 50 mls/hr IV ASDIRECTED [facility] Last Admin: 11/07/16 18:06 Dose: 50 mls/hr Ampicillin Sodium/Sulbactam (Sodium 1.5 gm/ Sodium Chloride) 50 mls @ 100 mls/ hr IV Q6H [facility] Last Admin: 11/09/16 10:43 Dose: 100 mls/hr Vancomycin HCl 2 gm/ Sodium (Chloride) 500 mls @ 250 mls/hr IV Q12H [facility] Last Admin: 11/08/16 23:25 Dose: 250 mls/hr Ampicillin Sodium 2 gm/ Sodium (Chloride) 100 mls @ 200 mls/hr IV Q6H TED Last Admin: 11/11/16 10:08 Dose: 200 mls/hr Potassium Chloride (Klor-Con M20) 40 meq PO ONETIME ONE Stop: 11/08/16 09:01 Last Admin: 11/08/16 09:37 Dose: 40 meq Vancomycin HCl (Vancomycin) 1 gm IV .PHARMACY TO DOSE TED Stop: 11/08/16 16:00 - Exam Quality Assessment: No: supplemental oxygen General: alert, oriented, cooperative, no acute distress Neck: supple Lungs: Clear to auscultation, Normal respiratory effort Cardiovascular: Regular Rate, Regular Rhythm Abdomen: soft, no tenderness, no distension Extremities: no cyanosis, edema (pitting edema both lower legs) Skin: warm, dry Psy/Mental Status: alert, normal affect - Problem List Review Problem List Initiated/Reviewed/Updated: Yes - My Orders Last 24 Hours: My Active Orders 11/11/16 21:00 Amoxicillin/Clavulanate K [Augmentin 875 MG/125 MG] 1 tab PO Q12HR 11/12/16 05:00 BASIC METABOLIC PANEL,BMP [CHEM] Timed CBC W/O DIFF,HEMOGRAM [HEME] Timed (1) - Plan Plan:: ASSESSMENT AND PLAN URINARY TRACT INFECTION WITH SEPSIS - sepsis has resolved. Urine culture has grown out enterococcus, blood cultures have grown out enterococcus and Escherichia coli. Clinically improving and strength is improving each day. -Saline lock IV -change antibiotics to Augmentin DECUBITUS ULCER - present on admission, this is a chronic ulcer present for the past year. 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 -Closely monitor urine output and renal function during hospital stay MAINTENANCE ISSUES -DVT prophylaxis; he knocks apparent 40 mg subcutaneous daily -GI prophylaxis; not indicated -Colmenares catheter; not indicated -Nutrition; 2 g sodium diet -Nicotine dependence; not required DISPOSITION - anticipate discharge to home after the hospital stay. Justin Sanchez MD
[2016-11-11] MEDS: Enoxaparin 40 MG/0.4 ML Syringe SUBCUT SCH (17:49)
[2016-11-11] MEDS: Amoxicillin/Clavulanate K 875-125 MG Tab PO SCH (20:12)
[2016-11-11] MEDS: Simvastatin 20 MG Tab PO SCH (20:12)
[2016-11-11] MEDS: busPIRone 5 MG Tab PO SCH (20:13)
[2016-11-12] MEDS: Diclofenac Sodium 1% Gel 100 GM Tube TOP SCH ×4 (06:18→22:00)
[2016-11-12] MEDS: Amoxicillin/Clavulanate K 875-125 MG Tab PO SCH ×2 (08:05→20:51)
[2016-11-12] MEDS: Losartan 50 MG Tab PO SCH (08:05)
[2016-11-12] MEDS: Magnesium Oxide 400 MG Tab PO SCH (08:06)
[2016-11-12] MEDS: amLODIPine 10 MG Tab PO SCH (08:06)
[2016-11-12] MEDS: Aspirin 81 MG Tab.EC PO SCH (08:06)
[2016-11-12] MEDS: Sertraline 50 MG Tab PO SCH (08:06)
[2016-11-12] MEDS: Lactobacillus Rhamnosus GG (Probiotic) Cap PO SCH ×2 (08:06→20:51)
[2016-11-12] MEDS: Furosemide 80 MG Tab PO SCH (08:06)
[2016-11-12] MEDS: Allopurinol 300 MG Tab PO SCH (08:07)
--- NOTE | 2016-11-12 14:14 | PCM.PN ---
- General Info Date of Service: 11/12/16 Functional Status: Reports: pain controlled, tolerating diet, ambulating - Review of Systems General: Reports: Weakness Gastrointestinal: Denies: Abdominal pain Systems Review Comment:: No acute events overnight. Tolerating oral antibiotics and he has not had any fevers. Still very weak but is able to get out of bed with a little bit of assistance. No complaints of abdominal pain or diarrhea. Lower extremity edema is at baseline. Still too weak to be safe for outpatient management. - Patient Data Vitals - most recent: Last Vital Signs Temp 35.9 C 11/12/16 11:15 Pulse 78 11/12/16 11:15 Resp 16 11/12/16 11:15 BP 144/67 H 11/12/16 11:15 Pulse Ox 94 L 11/12/16 11:15 Weight - most recent: 152.588 kg I&O - last 24 hours: Intake & Output 11/11/16 11/12/16 11/12/16 22:59 06:59 14:59 Intake Total 690 700 350 Output Total 2150 1400 1300 Balance -1460 -700 -950 Lab Results last 24 hrs: Laboratory Results - last 24 hr 11/12/16 11/12/16 Range/Units 05:00 05:00 WBC 9.0 (4.5-11.0) K/uL RBC 3.24 L (4.30-5.90) M/uL Hgb 10.5 L (12.0-15.0) g/dL Hct 31.8 L (40.0-54.0) % MCV 98 (80-98) fL MCH 32 H (27-31) pg MCHC 33 (32-36) % Plt Count 209 (150-400) K/uL Sodium 137 L (140-148) mmol/L Potassium 3.6 (3.6-5.2) mmol/L Chloride 102 (100-108) mmol/L Carbon Dioxide 27 (21-32) mmol/L Anion Gap 11.6 (5.0-14.0) mmol/L BUN 28 H (7-18) mg/dL Creatinine 1.1 (0.8-1.3) mg/dL Est Cr Clr Drug Dosing 63.28 mL/min Estimated GFR (MDRD) > 60 (>60) Glucose 90 (74-106) mg/dL Calcium 9.0 (8.5-10.1) mg/dL Med Orders - Current: Current Medications Acetaminophen (Tylenol) 650 mg PO Q4H PRN PRN Reason: Pain (Mild 1-3)/fever Last Admin: 11/09/16 21:01 Dose: 650 mg Albuterol (Proventil Neb Soln) 2.5 mg NEB Q4H PRN PRN Reason: Shortness Of Breath/wheezing Last Admin: 11/09/16 08:43 Dose: 2.5 mg Allopurinol (Zyloprim) 300 mg PO DAILY [facility] Last Admin: 11/12/16 08:07 Dose: 300 mg Amlodipine Besylate (Norvasc) 10 mg PO DAILY [facility] Last Admin: 11/12/16 08:06 Dose: 10 mg Amoxicillin/Clavulanate Potassium (Augmentin 875 Mg/125 Mg) 1 tab PO Q12H [facility] Last Admin: 11/12/16 08:05 Dose: 1 tab Aspirin (Halfprin) 81 mg PO DAILY [facility] Last Admin: 11/12/16 08:06 Dose: 81 mg Buspirone HCl (Buspar) 5 mg PO BEDTIME [facility] Last Admin: 11/11/16 20:13 Dose: 5 mg Diclofenac Sodium (Voltaren 1% Gel) 0 gm TOP QID [facility] Last Admin: 11/12/16 06:18 Dose: 1 applic Dimethicone/Zinc Oxide (Rash Relief-Zinc Oxide [place]) 1 gm TOP ASDIRECTED PRN PRN Reason: Rash Last Admin: 11/08/16 22:55 Dose: 1 gm Docusate Sodium (Colace) 100 mg PO BID PRN PRN Reason: Constipation Last Admin: 11/09/16 16:21 Dose: 100 mg Enoxaparin Sodium (Lovenox) 40 mg SUBCUT Q24H [facility] Last Admin: 11/11/16 17:49 Dose: 40 mg Furosemide (Lasix) 80 mg PO DAILY [facility] Last Admin: 11/12/16 08:06 Dose: 80 mg Lactobacillus Rhamnosus (Culturelle) 1 cap PO BID [facility] Last Admin: 11/12/16 08:06 Dose: 1 cap Losartan Potassium (Cozaar) 50 mg PO DAILY [facility] Last Admin: 11/12/16 08:05 Dose: 50 mg Magnesium Hydroxide (Milk Of Magnesia) 30 ml PO Q12H PRN PRN Reason: Constipation Magnesium Oxide (Magnesium Oxide) 400 mg PO DAILY [facility] Last Admin: 11/12/16 08:06 Dose: 400 mg Ondansetron HCl (Zofran) 4 mg IV Q4H PRN PRN Reason: Nausea/Vomiting Oxycodone HCl (Oxycodone) 10 mg PO Q4H PRN PRN Reason: Pain (moderate 4-6) Polyethylene Glycol (Miralax) 17 gm PO DAILY PRN PRN Reason: Constipation Sertraline HCl (Zoloft) 100 mg PO DAILY [facility] Last Admin: 11/12/16 08:06 Dose: 100 mg Simvastatin (Zocor) 80 mg PO BEDTIME [facility] Last Admin: 11/11/16 20:12 Dose: 80 mg Sodium Chloride (Saline Flush) 10 ml FLUSH ASDIRECTED PRN PRN Reason: Keep Vein Open Last Admin: 11/08/16 22:55 Dose: 10 ml Discontinued Medications Acetaminophen (Tylenol) 650 mg PO NOW ONE Stop: 11/06/16 11:53 Last Admin: 11/06/16 11:59 Dose: 650 mg Sodium Chloride (Normal Saline) 1,000 mls @ 500 mls/hr IV ASDIRECTED [facility] Last Admin: 11/06/16 11:32 Dose: 500 mls/hr Sodium Chloride (Normal Saline) 1,000 mls @ 1,000 mls/hr IV ASDIRECTED [facility] Stop: 11/06/16 15:01 Last Admin: 11/06/16 14:31 Dose: 1,000 mls/hr Ceftriaxone Sodium 1 gm/ (Sodium Chloride) 50 mls @ 100 mls/hr IV Q24H [facility] Last Admin: 11/06/16 13:32 Dose: Not Given Sodium Chloride (Normal Saline) 1,000 mls @ 500 mls/hr IV ASDIRECTED [facility] Sodium Chloride (Normal Saline) 1,000 mls @ 999 mls/hr IV ASDIRECTED [facility] Sodium Chloride (Normal Saline) 500 mls @ 250 mls/hr IV .BOLUS ONE Stop: 11/06/16 17:29 Last Admin: 11/06/16 15:45 Dose: 250 mls/hr Sodium Chloride (Normal Saline) 1,000 mls @ 125 mls/hr IV ASDIRECTED [facility] Last Admin: 11/07/16 04:51 Dose: 125 mls/hr Ceftriaxone Sodium 1 gm/ (Sodium Chloride) 50 mls @ 100 mls/hr IV Q24H [facility] Last Admin: 11/07/16 12:51 Dose: 100 mls/hr Sodium Chloride (Normal Saline) 1,000 mls @ 999 mls/hr IV .BOLUS ONE Stop: 11/06/16 18:11 Last Admin: 11/06/16 17:26 Dose: 999 mls/hr Norepinephrine Bitartrate 4 mg (/ Dextrose/Water) 250 mls @ 7.5 mls/hr IV TITRATE TED; 2 MCG/MIN PRN Reason: Protocol Last Titration: 11/07/16 09:40 Dose: 0 mcg/min, 0 mls/hr Dextrose/Water (Dextrose 5% In Water) Confirm Administered Dose 250 mls @ as directed .ROUTE .STK-MED ONE Stop: 11/06/16 20:06 Last Admin: 11/06/16 20:14 Dose: 7.5 ml Sodium Chloride (Normal Saline) 1,000 mls @ 50 mls/hr IV ASDIRECTED [facility] Last Admin: 11/07/16 18:06 Dose: 50 mls/hr Ampicillin Sodium/Sulbactam (Sodium 1.5 gm/ Sodium Chloride) 50 mls @ 100 mls/ hr IV Q6H [facility] Last Admin: 11/09/16 10:43 Dose: 100 mls/hr Vancomycin HCl 2 gm/ Sodium (Chloride) 500 mls @ 250 mls/hr IV Q12H [facility] Last Admin: 11/08/16 23:25 Dose: 250 mls/hr Ampicillin Sodium 2 gm/ Sodium (Chloride) 100 mls @ 200 mls/hr IV Q6H [facility] Last Admin: 11/11/16 10:08 Dose: 200 mls/hr Potassium Chloride (Klor-Con M20) 40 meq PO ONETIME ONE Stop: 11/08/16 09:01 Last Admin: 11/08/16 09:37 Dose: 40 meq Vancomycin HCl (Vancomycin) 1 gm IV .PHARMACY TO DOSE [facility] Stop: 11/08/16 16:00 - Exam Quality Assessment: supplemental oxygen General: alert, oriented, cooperative, no acute distress Neck: supple Lungs: Normal respiratory effort. No: Wheezing Cardiovascular: Regular Rate, Regular Rhythm Abdomen: soft, no distension Extremities: no cyanosis, edema Skin: warm, dry Psy/Mental Status: alert, normal affect - Problem List Review Problem List Initiated/Reviewed/Updated: Yes - My Orders Last 24 Hours: My Active Orders 11/11/16 21:00 Amoxicillin/Clavulanate K [Augmentin 875 MG/125 MG] 1 tab PO Q12H 11/12/16 10:14 DC Colmenares Catheter [Urinary Catheter Removal] [] Per Unit Routine 11/12/16 14:10 Potassium Chloride [Klor-Con M20] 40 meq PO ONETIME ONE 11/12/16 14:11 Up to Chair [] QID 11/13/16 05:00 BASIC METABOLIC PANEL,BMP [CHEM] Timed - Plan Plan:: ASSESSMENT AND PLAN URINARY TRACT INFECTION WITH SEPSIS - sepsis has resolved. Urine culture has grown out enterococcus, blood cultures have grown out enterococcus and Escherichia coli. Clinically improving and strength is improving each day. -Saline lock IV -Continue Augmentin with plan for 2 weeks of treatment -Continue physical therapy with weakness DECUBITUS ULCER - present on admission, this is a chronic ulcer present for the past year. 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 -Closely monitor urine output and renal function during hospital stay MAINTENANCE ISSUES -DVT prophylaxis; he knocks apparent 40 mg subcutaneous daily -GI prophylaxis; not indicated -Colmenares catheter; not indicated -Nutrition; 2 g sodium diet DISPOSITION - anticipate discharge to home with home health care after the hospital stay, hopefully in the next day or 2 once he is a little bit stronger Justin Sanchez MD
[2016-11-12] MEDS ORDERED: Potassium Chloride 20 MEQ Tab.ER PO ONE (14:30)
[2016-11-12] MEDS: Enoxaparin 40 MG/0.4 ML Syringe SUBCUT SCH (16:57)
[2016-11-12] MEDS: busPIRone 5 MG Tab PO SCH (20:51)
[2016-11-12] MEDS: Simvastatin 20 MG Tab PO SCH (20:52)
[2016-11-13] MEDS: Diclofenac Sodium 1% Gel 100 GM Tube TOP SCH ×2 (06:24→11:58)
[2016-11-13] MEDS: Amoxicillin/Clavulanate K 875-125 MG Tab PO SCH (08:09)
[2016-11-13] MEDS: Aspirin 81 MG Tab.EC PO SCH (08:09)
[2016-11-13] MEDS: Furosemide 80 MG Tab PO SCH (08:09)
[2016-11-13] MEDS: Lactobacillus Rhamnosus GG (Probiotic) Cap PO SCH (08:09)
[2016-11-13] MEDS: Losartan 50 MG Tab PO SCH (08:09)
[2016-11-13] MEDS: amLODIPine 10 MG Tab PO SCH (08:10)
[2016-11-13] MEDS: Sertraline 50 MG Tab PO SCH (08:10)
[2016-11-13] MEDS: Allopurinol 300 MG Tab PO SCH (08:10)
[2016-11-13] MEDS: Magnesium Oxide 400 MG Tab PO SCH (08:10)
[2016-11-13 10:43] VITALS: BP 133/61
--- NOTE | 2016-11-13 14:14 | PCM.DCSUM1 ---
Discharge Summary - Hospital Course Brief History: 81-year-old male with history of hypertension, obesity, stage III chronic kidney disease who presented with weakness and shaking chills. He was admitted for management of a urinary tract infection with sepsis. - Discharge Data Discharge Date: 11/13/16 Discharge Disposition: Home, [facility] 06 Condition: Good - Discharge Diagnosis/Problem(s) (1) Complicated UTI (urinary tract infection) SNOMED Code(s): 59782085 ICD Code: N39.0 - URINARY TRACT INFECTION, SITE NOT SPECIFIED Status: Acute (2) Sepsis SNOMED Code(s): 88332492 ICD Code: A41.9 - SEPSIS, UNSPECIFIED ORGANISM Status: Acute (3) E. coli bacteremia SNOMED Code(s): 103193777062 ICD Code: R78.81 - BACTEREMIA Status: Acute (4) Generalized weakness SNOMED Code(s): 15903598 ICD Code: R53.1 - WEAKNESS Status: Acute - Patient Summary/Data Consults: Consultations 11/06/16 15:30 PT Evaluation and Treatment [CONS] Routine Please Evaluate and Treat. PT Reason for Consult: Strengthening This query below is only for informational purposes and is not editable. Hospital Course: Juan Carlos presented to the emergency room with progressive weakness and shaking chills. Workup in the emergency room was suggestive of a urinary tract infection with sepsis. He was empirically started on ceftriaxone and received treatment for sepsis in the emergency room. He was admitted to the intensive care unit for further management. Over the next 2 days he had additional temperature elevations since some ongoing evidence for sepsis. On the second full day of hospitalization cultures returned with enterococcus and Escherichia coli. At this point he was switched to Unasyn. After this antibiotic change was made he again to show clinical improvement with improving fever curve. Sepsis resolved at this point. He was continued on the antibiotics throughout the course of the weekend. He did have ongoing improvement in his clinical status. His big kole during the second half of the hospital stay was generalized weakness. During hospital days 3 and 4 he had significant limitations of his strength and required a lot of assistance even to get into and out of bed. Fortunately following the resolution of sepsis he did start to show some improvement in his strength. He has remained afebrile with the antibiotic regimen of Unasyn and we were able to transition him to oral Augmentin. Over the last 2 days of the hospital stay most of our work was centered around strengthening. I do believe he would benefit from subacute rehabilitation to help regain strength prior to going home but at this time he is not interested in a longterm stay. He is much more interested in going home and is willing to accept home health care services including nursing, physical therapy and occupational therapy. He does have several family members who would be available to help him over the next few days along with the home health team. He is able to get out of bed and off of the commode on his own. He does require some assistance to get out of the chair in his room but he reports that he has an electric lift chair at home. He does currently have a walker and will be utilizing this to help with ambulation as he gains strength. Plan is for discharge to home in a home healthcare referral. He will be on Augmentin for 9 additional days. Chronic medical problems have been stable. - Patient Instructions Diet: Heart Healthy Diet Activity: As Tolerated Showering/Bathing: May Shower Notify Provider of: Fever, Increased Pain, Nausea and/or Vomiting Other/Special Instructions: 1. You were in the hospital for management of a complicated urinary tract infection with sepsis. The infection was caused by enterococcus and Escherichia coli bacteria. You should take Augmentin twice daily for 9-1/2 more days. Your first dose is due tonight. 2. I have completed a referral to home health care. They will help with nursing, physical therapy and occupational therapy to ease the transition from the hospital to home. 3. Please seek medical attention if you develop fever greater than 101, have persistent vomiting or diarrhea or you are too weak to perform your activities of daily living. - Discharge Plan Prescriptions/Med Rec: Amoxicillin/Clavulanate K [Augmentin 875-125 MG] 1 tab PO BID #19 tablet Home Medications: Home Meds Allopurinol [Zyloprim] 300 mg PO DAILY 11/06/16 [History] Aspirin [Halfprin] 81 mg PO DAILY 11/06/16 [History] Diclofenac Sodium [Voltaren] 100 gm TP QID 11/06/16 [History] Furosemide 80 mg PO DAILY 11/06/16 [History] Losartan Potassium 50 mg PO DAILY 11/06/16 [History] Magnesium Oxide 400 mg PO DAILY 11/06/16 [History] Saccharomyces Boulardii [Florastor] 250 mg PO BID 11/06/16 [History] Sertraline [Zoloft] 100 mg PO DAILY 11/06/16 [History] Simvastatin [Zocor] 80 mg PO BEDTIME 11/06/16 [History] Vitamin E 400 units PO DAILY 11/06/16 [History] amLODIPine [Norvasc] 10 mg PO DAILY 11/06/16 [History] busPIRone [Buspar] 5 mg PO BEDTIME 11/06/16 [History] Amoxicillin/Clavulanate K [Augmentin 875-125 MG] 1 tab PO BID #19 tablet [Rx] Patient Handouts: Amoxicillin; Clavulanic Acid tablets, Urinary Tract Infection , Adult Forms: ED Department Discharge Referrals: PCP,None [Primary Care Provider] - (Follow up with Dr. Maciel at the [facility] on November 18 at 1:30 pm) - Discharge Summary/Plan Comment DC Time >30 min.: Yes (35 - completing home healthcare paperwork) - Patient Data Vitals - Most Recent: Last Vital Signs Temp 35.5 C 11/13/16 10:42 Pulse 61 11/13/16 10:42 Resp 17 11/13/16 10:42 BP 133/61 11/13/16 10:42 Pulse Ox 95 11/13/16 10:42 Weight - Most Recent: 147.554 kg I&O - Last 24 hours: Intake & Output 11/12/16 11/13/16 11/13/16 22:59 06:59 14:59 Intake Total 350 550 Output Total 400 300 Balance -50 250 Lab Results - Last 24 hrs: Laboratory Results - last 24 hr 11/13/16 Range/Units 05:50 Sodium 140 (140-148) mmol/L Potassium 4.0 (3.6-5.2) mmol/L Chloride 104 (100-108) mmol/L Carbon Dioxide 30 (21-32) mmol/L Anion Gap 6.0 (5.0-14.0) mmol/L BUN 25 H (7-18) mg/dL Creatinine 1.2 (0.8-1.3) mg/dL Est Cr Clr Drug Dosing 58.01 mL/min Estimated GFR (MDRD) 58 L (>60) Glucose 92 (74-106) mg/dL Calcium 9.3 (8.5-10.1) mg/dL Med Orders - Current: Current Medications Acetaminophen (Tylenol) 650 mg PO Q4H PRN PRN Reason: Pain (Mild 1-3)/fever Last Admin: 11/09/16 21:01 Dose: 650 mg Albuterol (Proventil Neb Soln) 2.5 mg NEB Q4H PRN PRN Reason: Shortness Of Breath/wheezing Last Admin: 11/09/16 08:43 Dose: 2.5 mg Allopurinol (Zyloprim) 300 mg PO DAILY [facility] Last Admin: 11/13/16 08:10 Dose: 300 mg Amlodipine Besylate (Norvasc) 10 mg PO DAILY [facility] Last Admin: 11/13/16 08:10 Dose: 10 mg Amoxicillin/Clavulanate Potassium (Augmentin 875 Mg/125 Mg) 1 tab PO Q12H [facility] Last Admin: 11/13/16 08:09 Dose: 1 tab Aspirin (Halfprin) 81 mg PO DAILY [facility] Last Admin: 11/13/16 08:09 Dose: 81 mg Buspirone HCl (Buspar) 5 mg PO BEDTIME [facility] Last Admin: 11/12/16 20:51 Dose: 5 mg Diclofenac Sodium (Voltaren 1% Gel) 0 gm TOP QID [facility] Last Admin: 11/13/16 11:58 Dose: 1 applic Dimethicone/Zinc Oxide (Rash Relief-Zinc Oxide [place]) 1 gm TOP ASDIRECTED PRN PRN Reason: Rash Last Admin: 11/08/16 22:55 Dose: 1 gm Docusate Sodium (Colace) 100 mg PO BID PRN PRN Reason: Constipation Last Admin: 11/09/16 16:21 Dose: 100 mg Enoxaparin Sodium (Lovenox) 40 mg SUBCUT Q24H [facility] Last Admin: 11/12/16 16:57 Dose: 40 mg Furosemide (Lasix) 80 mg PO DAILY [facility] Last Admin: 11/13/16 08:09 Dose: 80 mg Lactobacillus Rhamnosus (Culturelle) 1 cap PO BID [facility] Last Admin: 11/13/16 08:09 Dose: 1 cap Losartan Potassium (Cozaar) 50 mg PO DAILY [facility] Last Admin: 11/13/16 08:09 Dose: 50 mg Magnesium Hydroxide (Milk Of Magnesia) 30 ml PO Q12H PRN PRN Reason: Constipation Magnesium Oxide (Magnesium Oxide) 400 mg PO DAILY [facility] Last Admin: 11/13/16 08:10 Dose: 400 mg Ondansetron HCl (Zofran) 4 mg IV Q4H PRN PRN Reason: Nausea/Vomiting Oxycodone HCl (Oxycodone) 10 mg PO Q4H PRN PRN Reason: Pain (moderate 4-6) Polyethylene Glycol (Miralax) 17 gm PO DAILY PRN PRN Reason: Constipation Sertraline HCl (Zoloft) 100 mg PO DAILY [facility] Last Admin: 11/13/16 08:10 Dose: 100 mg Simvastatin (Zocor) 80 mg PO BEDTIME [facility] Last Admin: 11/12/16 20:52 Dose: 80 mg Sodium Chloride (Saline Flush) 10 ml FLUSH ASDIRECTED PRN PRN Reason: Keep Vein Open Last Admin: 11/08/16 22:55 Dose: 10 ml Discontinued Medications Acetaminophen (Tylenol) 650 mg PO NOW ONE Stop: 11/06/16 11:53 Last Admin: 11/06/16 11:59 Dose: 650 mg Sodium Chloride (Normal Saline) 1,000 mls @ 500 mls/hr IV ASDIRECTED [facility] Last Admin: 11/06/16 11:32 Dose: 500 mls/hr Sodium Chloride (Normal Saline) 1,000 mls @ 1,000 mls/hr IV ASDIRECTED [facility] Stop: 11/06/16 15:01 Last Admin: 11/06/16 14:31 Dose: 1,000 mls/hr Ceftriaxone Sodium 1 gm/ (Sodium Chloride) 50 mls @ 100 mls/hr IV Q24H [facility] Last Admin: 11/06/16 13:32 Dose: Not Given Sodium Chloride (Normal Saline) 1,000 mls @ 500 mls/hr IV ASDIRECTED [facility] Sodium Chloride (Normal Saline) 1,000 mls @ 999 mls/hr IV ASDIRECTED [facility] Sodium Chloride (Normal Saline) 500 mls @ 250 mls/hr IV .BOLUS ONE Stop: 11/06/16 17:29 Last Admin: 11/06/16 15:45 Dose: 250 mls/hr Sodium Chloride (Normal Saline) 1,000 mls @ 125 mls/hr IV ASDIRECTED [facility] Last Admin: 11/07/16 04:51 Dose: 125 mls/hr Ceftriaxone Sodium 1 gm/ (Sodium Chloride) 50 mls @ 100 mls/hr IV Q24H [facility] Last Admin: 11/07/16 12:51 Dose: 100 mls/hr Sodium Chloride (Normal Saline) 1,000 mls @ 999 mls/hr IV .BOLUS ONE Stop: 11/06/16 18:11 Last Admin: 11/06/16 17:26 Dose: 999 mls/hr Norepinephrine Bitartrate 4 mg (/ Dextrose/Water) 250 mls @ 7.5 mls/hr IV TITRATE TED; 2 MCG/MIN PRN Reason: Protocol Last Titration: 11/07/16 09:40 Dose: 0 mcg/min, 0 mls/hr Dextrose/Water (Dextrose 5% In Water) Confirm Administered Dose 250 mls @ as directed .ROUTE .STK-MED ONE Stop: 11/06/16 20:06 Last Admin: 11/06/16 20:14 Dose: 7.5 ml Sodium Chloride (Normal Saline) 1,000 mls @ 50 mls/hr IV ASDIRECTED [facility] Last Admin: 11/07/16 18:06 Dose: 50 mls/hr Ampicillin Sodium/Sulbactam (Sodium 1.5 gm/ Sodium Chloride) 50 mls @ 100 mls/ hr IV Q6H [facility] Last Admin: 11/09/16 10:43 Dose: 100 mls/hr Vancomycin HCl 2 gm/ Sodium (Chloride) 500 mls @ 250 mls/hr IV Q12H [facility] Last Admin: 11/08/16 23:25 Dose: 250 mls/hr Ampicillin Sodium 2 gm/ Sodium (Chloride) 100 mls @ 200 mls/hr IV Q6H [facility] Last Admin: 11/11/16 10:08 Dose: 200 mls/hr Potassium Chloride (Klor-Con M20) 40 meq PO ONETIME ONE Stop: 11/08/16 09:01 Last Admin: 11/08/16 09:37 Dose: 40 meq Potassium Chloride (Klor-Con M20) 40 meq PO ONETIME ONE Stop: 11/12/16 14:31 Last Admin: 11/12/16 15:07 Dose: 40 meq Vancomycin HCl (Vancomycin) 1 gm IV .PHARMACY TO DOSE [facility] Stop: 11/08/16 16:00 *Q Meaningful Use (DIS) - VTE *Q VTE Criteria *Q: - Stroke *Q Stroke Criteria *Q: - AMI *Q AMI Criteria *Q:
== END 2016-11-13 14:45 | disposition home health service (06) | DRG 872 ==
LOC: JP.ED 11:09 → JP.ICU 15:00 → JP.MS 11-09 11:30
PROVIDERS: ADMIT Hospitalist; ATTEND Internal Medicine
DX: A41.51 Sepsis due to Escherichia coli [E. coli] (principal); N39.0 Urinary tract infection, site not specified; N17.9 Acute kidney failure, unspecified; I13.0 Hypertensive heart and chronic kidney disease with heart failure and stage 1 through stage 4 chronic kidney disease, or unspecified chronic kidney disease; R65.20 Severe sepsis without septic shock; B95.2 Enterococcus as the cause of diseases classified elsewhere; M79.89 Other specified soft tissue disorders; I50.9 Heart failure, unspecified; N18.3 Chronic kidney disease, stage 3 (moderate); R53.1 Weakness; R50.9 Fever, unspecified; L89.159 Pressure ulcer of sacral region, unspecified stage; Z79.2 Long term (current) use of antibiotics; Z72.89 Other problems related to lifestyle; I25.10 Atherosclerotic heart disease of native coronary artery without angina pectoris; Z95.2 Presence of prosthetic heart valve; E78.00 Pure hypercholesterolemia, unspecified; I25.2 Old myocardial infarction; N40.1 Benign prostatic hyperplasia with lower urinary tract symptoms; N39.498 Other specified urinary incontinence; Z85.46 Personal history of malignant neoplasm of prostate; Z92.3 Personal history of irradiation; Z90.79 Acquired absence of other genital organ(s); H91.90 Unspecified hearing loss, unspecified ear; Z79.82 Long term (current) use of aspirin
CPT/HCPCS: 36415; 71010 ×2; 80053; 81001; 83605; 85025; 87040 ×2; 87077 ×2; 87086; 87088; 87186 ×3; 93971 ×2; 96361; 96365; 96366; 99285; A9270; J0696; J7040 ×3; J7050; 80048; 83735; 85027; 97110-GP; 97162-GP; 97530-GP; J0287; J0290; J1650; J3370; J7030; J7060